=== PATIENT | female | born 1955 | race Caucasian/White ===

== ENCOUNTER 2020-03-22 06:58 | Outpatient (NON) | payer MEDICARE, MEDICAID, SELFPAY ==
[2020-03-22 23:36] LABS: SARS-CoV-2 RNA PCR Negative
== END 2020-03-22 06:59 ==
PROVIDERS: PCP Family Medicine; Visit Provider Family Medicine
DX: Z20.828 Contact with and (suspected) exposure to other viral communicable diseases (principal); R05 Cough; R06.02 Shortness of breath; R50.9 Fever, unspecified; R52 Pain, unspecified
CPT/HCPCS: 87635; C9803; U0003

== ENCOUNTER 2020-09-05 13:03 | Outpatient (CLI) | payer MEDICARE, MEDICAID, SELFPAY ==
--- NOTE | ~2020-09-05 | DEXA_ITS ---
Bone Density Report Name: Megan Truong Age: 65 Sex: Female Ethnicity: White Date of : 1955 Indication: osteopenia; height loss; prior fracture; Referring Provider: Roddy Fernandez Study: Bone densitometry was performed. Exam Date: September 05, 2020 Accession number: [id number] Bone Density: Region BMD T-score Z-score Classification AP Spine (L2, L3, L4) 0.866 -1.9 0.0 Osteopenia Femoral Neck (Left) 0.723 -1.1 0.5 Osteopenia Total Hip (Left) 0.569 -3.1 -1.7 Osteoporosis World Health Organization criteria for BMD impression classify patients as: Normal (T-score at or above -1.0), Osteopenia (T-score between -1.0 and -2.5), or Osteoporosis (T-score at or below -2.5). 10-year Fracture Risk: FRAX not reported because: Some T-score for Spine Total or Hip Total or Femoral Neck at or below -2.5 Prior hip or vertebral fracture Previous Exams: Region Exam Age BMD T-score BMD Change BMD Change Date g/cm2 vs Baseline vs Previous AP Spine(L2, L3, L4) 09/05/2020 65 0.866 -1.9 -0.137(-13.7%) -0.116(-11.8%) 06/04/2008 52 0.981 -0.9 -0.022(-2.2%) -0.022(-2.2%) 02/21/2006 50 1.003 -0.7 Total Hip(Left) 09/05/2020 65 0.569 -3.1 -0.221(-28.0%) -0.151(-21.0%) 06/04/2008 52 0.720 -1.8 -0.070(-8.9%)* -0.070(-8.9%)* 02/21/2006 50 0.790 -1.2 *Denotes significance at 95% confidence level, LSC for AP Spine = 0.022 g/cm2, LSC for Total Hip = 0.027 g/cm2 Clinical Information Provided by Patient: Have had a previous hip or vertebral fracture Has had a low trauma fracture Patient maximum height was 66 Menopause Age: 53 No regular weight bearing exercise Does not regularly consume dairy products Drinks caffeinated beverages Onset of menses at age 10 Number of children 2 Impression: The patient has established osteoporosis, based on the Left Total Hip T-score and the existence of a prior fracture. The patient has risk factors, including: previous fracture. No significant bone loss was observed. Discussion: HIGH RISK OF FRACTURE. BONE DENSITY IS UNDESIRABLY LOW AT ONE OR MORE SKELETAL SITES, CONSISTENT WITH POSTMENOPAUSAL OSTEOPOROSIS. This patient's lowest T-score, in a patient who has previously fractured, meets the World Health Organization's (WHO) criteria for severe osteoporosis. In untreated patients, the risk of osteoporotic fracture increases approximately two-fold for each 1.0 SD decrease in T-score. Low bone density is not the only risk factor for fracture; also consider factors such as patient's age, frailty or
== END 2020-09-05 13:04 | disposition home or self-care (01) ==
LOC: ANHIMG 13:05
PROVIDERS: PCP Family Medicine; Visit Provider Family Medicine
DX: M81.0 Age-related osteoporosis without current pathological fracture (principal); M85.852 Other specified disorders of bone density and structure, left thigh; S32.10XA Unspecified fracture of sacrum, initial encounter for closed fracture
CPT/HCPCS: 77080

== ENCOUNTER → 2020-12-21 10:18 | Outpatient (CLI) | payer MEDICARE, MEDICAID, SELFPAY ==
--- NOTE | ~2020-12-21 | XR_ITS ---
XR knee LT min 4V 12/21/2020 10:35 INDICATION: Left knee pain PROCEDURE: 5 views left knee COMPARISON: 06/01/2006 FINDINGS: Fracture, dislocation or subluxation is not identified. Osteopenia. No significant joint ef fusion. The soft tissues appear within normal limits. No foreign bodies are identified. IMPRESSION: 1: NO ACUTE BONE OR JOINT ABNORMALITY IDENTIFIED. Reviewed, dictated and finalized at location A.
== END ==
PROVIDERS: PCP Family Medicine; Visit Provider Physician Assistant Medical
DX: M25.562 Pain in left knee (principal)
CPT/HCPCS: 73564

== ENCOUNTER 2021-07-02 12:13 | Emergency (ER) | payer MEDICARE, MEDICAID, SELFPAY ==
--- NOTE | ~2021-07-02 | XR_ITS ---
XR hand LT 2V 07/02/2021 12:46 Indication: Left hand pain after fall Procedure: 2 views of the left hand Comparison: No prior studies for comparison. Findings: There is dislocation of the third finger at the PIP joint with dorsal dislocation. Osteopen ia. No acute fracture is identified. Impression: 1: Dorsal dislocation of the left third finger at the PIP joint. No definite underlying fracture. Reviewed, dictated and finalized at location A. SUPERVISOR Impression: 1: Dorsal dislocation of the left third finger at the PIP joint. No definite un derlying fracture.
--- NOTE | ~2021-07-02 | XR_ITS ---
XR finger 3rd LT min 2V 07/02/2021 14:00 Indication: Post reduction Procedure: 2 views left third finger Comparison: 07/02/2021 Findings: No significant interval change to alignment of dislocated left third finger at the PIP join t. There is persistent dorsal dislocation. Mild soft tissue swelling. Impression: 1: No significant change to alignment of dorsally dislocated third finger at the PIP joint. Reviewed, dictated and finalized at location A. SITTER Impression: 1: No significant change to alignment of dorsally dislocated third finger at th e PIP joint.
[2021-07-02 12:16] VITALS: BP 151/100; PULSE 124; RESP 18; TEMP 37.1; O2SAT 97
[2021-07-02] MEDS: MORPHINE SULFATE (*CRX) 4 MG/ML INJ IV PUSH (14:00)
[2021-07-02] MEDS: ONDANSETRON INJ 4 MG/2 ML VIAL IV PUSH (14:00)
[2021-07-02] MEDS: ceFAZolin SODIUM 1 GM VIAL IV PUSH (14:01)
--- NOTE | 2021-07-02 14:13 | ED.FALL ---
HPI - Fall General Chief Complaint: Fall Stated Complaint: L 3RD DIGIT INJURY Time Seen by Provider: 07/02/21 12:33 Source: patient Mode of arrival: wheelchair Limitations: no limitations History of Present Illness HPI Narrative: This is a 65 year old RHD female that presents to the ER for left hand injury sustained just prior to arrival. Reports she was transferring from her recliner into her wheelchair. She fell and caught herself with her left hand. She denies hitting her head or loss of consciousness. No other injuries. Reports pain and swelling to the left third finger with decreased range of motion. Denies numbness. Related Data Home Medications Medication Instructions Recorded Confirmed baclofen 10 mg PO TID PRN 06/12/19 12/20/20 citalopram 40 mg PO DAILY 06/12/19 12/20/20 morphine 60 mg PO Q8H 06/12/19 12/20/20 oxycodone 15 mg PO Q4H PRN 06/12/19 12/20/20 polyethylene glycol 3350 17 gram 17 g PO BID PRN each 10/30/19 12/20/20 oral powder packet Allergies Allergy/AdvReac Type Severity Reaction Status Date / Time clindamycin Allergy Mild HIVES Verified 07/02/21 12:26 ibuprofen AdvReac Mild Nausea and Verified 07/02/21 12:26 Vomiting Review of Systems Review of Systems: CONSTITUTIONAL: Denies fever MUSCULOSKELETAL: Reports joint pain, and myalgia. NEUROLOGIC: Denies numbness, or weakness. All systems reviewed & are unremarkable except as noted in HPI and below PMFSH Past Medical History Medical History (Updated 07/02/21 @ 15:14 by Pamela Clark PA-C) Arthritis Bronchitis Depression Emphysema lung Femur fracture, right GERD (gastroesophageal reflux disease) Hip fracture, right HTN (hypertension) Idiopathic peripheral autonomic neuropathy, unspecified Major depressive disorder, recurrent, unspecified Peripheral neuropathy Pneumonia Surgical History Surgical History History of hysterectomy Hx of cervical spine surgery fusion of C2-T2 S/P cubital tunnel release rt side Status post-operative repair of closed fracture of right hip Family History Family History Mother Diabetes mellitus Family history of cardiovascular disease Acute myocardial infarction Grandparent Family history of malignant neoplasm of breast Other Depression Social History Social History (Reviewed 12/20/20 @ 11:07 by Jaylin Bay [facility] [address]) Smoking packs per day: 1 Smoking cigarettes per day: 20.0 Years smoked: 35 Smoking pack-years: 35.00 Smoking status: Current every day smoker Alcohol intake: never Substance use: never Gender identity (if verbalized by the patient): Female Spiritual care concerns: No Agree to blood products: Yes Exam Narrative: GENERAL: Well-appearing, well-nourished, and in no acute distress. HEAD: Normocephalic, atraumatic. EYES: EOMI. EXTREMITIES: Edema with obvious deformity of the left third finger PIP joint. This is an open dislocation with 1.5cm laceration on the palmar surface of the joint. Normal sensation SKIN: Warm, dry, no rash. NEURO: No focal deficits. Alert and oriented x3. PSYCH: Normal mood and affect Course Consultations Consultation #1: Spoke with Dr. Hall with [facility] who accepts transfer Date: 07/02/21 Vital Signs Vital signs: Vital Signs Temperature 98.8 F 07/02/21 12:16 Pulse Rate 124 H 07/02/21 12:16 Respiratory Rate 18 07/02/21 12:16 Blood Pressure 151/100 H 07/02/21 12:16 Pulse Oximetry 97 07/02/21 12:16 Temperature 98.8 F 07/02/21 12:16 Pulse Rate 101 H 07/02/21 16:52 Respiratory Rate 18 07/02/21 16:52 Blood Pressure 165/102 H 07/02/21 16:52 Pulse Oximetry 98 07/02/21 16:52 Procedures Orthopedic Joint Reduction Joint #1: Orthopedic Joint Reduction Date: 07/02/21 Orthopedic Joint Reduction Time: 14:00 Side: left Joint Reduction Loc
--- NOTE | 2021-07-02 14:33 | PC.NURSE ---
when checking pt's vital signs, pt was 78% on room air. placed pt on 3L of O2 via nasal cannula and pt is now at 98%. pt states she wears 2L at home as needed.
[2021-07-02 14:34] VITALS: O2SAT 98
[2021-07-02 14:35] VITALS: BP 156/101; PULSE 95; RESP 14; O2SAT 98
[2021-07-02 16:52] VITALS: BP 165/102; PULSE 101; RESP 18; O2SAT 98
== END 2021-07-02 16:50 | disposition short-term general hospital (02) ==
PROVIDERS: Emergency Provider Emergency Medicine; PCP Family Medicine
DX: S63.283A Dislocation of proximal interphalangeal joint of left middle finger, initial encounter (principal); J43.9 Emphysema, unspecified; I10 Essential (primary) hypertension; M19.90 Unspecified osteoarthritis, unspecified site; K21.9 Gastro-esophageal reflux disease without esophagitis; G60.9 Hereditary and idiopathic neuropathy, unspecified; Z87.01 Personal history of pneumonia (recurrent); F32.9 Major depressive disorder, single episode, unspecified; Z98.1 Arthrodesis status; F17.210 Nicotine dependence, cigarettes, uncomplicated; W07.XXXA Fall from chair, initial encounter
CPT/HCPCS: 26770; 73120; 73140; 96374; 96375; 99285; J0690; J2270; J2405

== ENCOUNTER 2021-07-21 08:38 | Emergency (ER) | payer MEDICARE, MEDICAID, SELFPAY ==
--- NOTE | ~2021-07-21 | XR_ITS ---
EXAMINATION: XR foot LT min 3V DATE: 07/21/2021 09:13 INDICATION: Left foot injury and pain. TECHNIQUE: 4 views of left foot were obtained. COMPARISON: None. FINDINGS: Bone alignment is normal. No fracture. There is mild osteoarthritis of first metatarsophala ngeal joint and some of the interphalangeal joints. There is diffuse osteopenia. IMPRESSION: 1. Mild polyarticular osteoarthritis. Reviewed, dictated and finalized at location A. GEMENT MANAGER
--- NOTE | ~2021-07-21 | XR_ITS ---
EXAMINATION: XR ankle LT min 3V DATE: 07/21/2021 09:13 INDICATION: Left ankle injury. TECHNIQUE: 4 views of left ankle were obtained. COMPARISON: None. FINDINGS: Bone alignment is normal. No fracture. There is diffuse osteopenia. The ankle joint space i s normal. There is ankle soft tissue swelling. IMPRESSION: 1. No fracture. Reviewed, dictated and finalized at location A. LANE INSPECTOR IMPRESSION: 1. No fracture.
[2021-07-21 08:47] VITALS: BP 141/85; PULSE 88; RESP 18; TEMP 36.8; O2SAT 95
--- NOTE | 2021-07-21 08:59 | ED.LOWEXIN ---
HPI - Extremity Injury (Lower) General Chief Complaint: Extremity Injury, Lower Stated Complaint: left foot injury Time Seen by Provider: 07/21/21 08:50 History of Present Illness HPI Narrative: 65-year-old female presents the emergency room with complaints of left foot left ankle pain. Patient states that she was sitting in a chair and her foot got caught underneath and she tripped and fell twisting her foot and ankle. Patient has a stated history of neuropathy in both of her feet for which she takes morphine and oxycodone. Related Data Home Medications Medication Instructions Recorded Confirmed citalopram 40 mg PO DAILY 06/12/19 07/04/21 morphine 60 mg PO Q8H 06/12/19 07/04/21 oxycodone 15 mg PO Q4H PRN 06/12/19 07/04/21 polyethylene glycol 3350 17 gram 17 g PO BID PRN each 10/30/19 07/04/21 oral powder packet Allergies Allergy/AdvReac Type Severity Reaction Status Date / Time clindamycin Allergy Mild HIVES Verified 07/02/21 12:26 ibuprofen AdvReac Mild Nausea and Verified 07/02/21 12:26 Vomiting Review of Systems Review of Systems: CONSTITUTIONAL: Denies fever, chills, or sweats. EYES: Denies visual changes, redness, or discharge. ENT: Denies rhinorrhea, congestion, sore throat, or otalgia. CARDIOVASCULAR: Denies chest pain, palpitations, or edema. RESPIRATORY: Denies cough or dyspnea. GASTROINTESTINAL: Denies abdominal pain, nausea, vomiting, or diarrhea. GENITOURINARY: Denies dysuria or hematuria. SKIN: Denies rash or itching. MUSCULOSKELETAL: Reports left foot and ankle pain. NEUROLOGIC: Denies headache, numbness, dizziness, or weakness. PSYCHIATRIC: Denies anxiety or depression. [facility] Past Medical History Medical History (Updated 07/21/21 @ 09:23 by Giovanni Mendoza APRN) Arthritis Bronchitis Depression Emphysema lung Femur fracture, right GERD (gastroesophageal reflux disease) Hip fracture, right HTN (hypertension) Idiopathic peripheral autonomic neuropathy, unspecified Major depressive disorder, recurrent, unspecified Peripheral neuropathy Pneumonia Surgical History Surgical History History of hysterectomy Hx of cervical spine surgery fusion of C2-T2 S/P cubital tunnel release rt side Status post-operative repair of closed fracture of right hip Family History Family History Mother Diabetes mellitus Family history of cardiovascular disease Acute myocardial infarction Grandparent Family history of malignant neoplasm of breast Other Depression Social History Social History Smoking packs per day: 1 Smoking cigarettes per day: 20.0 Years smoked: 35 Smoking pack-years: 35.00 Smoking status: Current every day smoker Alcohol intake: never Substance use: never Gender identity (if verbalized by the patient): Female Spiritual care concerns: No Agree to blood products: Yes Exam Narrative: GENERAL: Well-appearing, well-nourished, and in no acute distress. HEAD: Normocephalic, atraumatic. EYES: PERRLA and EOMI. ENT: Nares clear, no rhinorrhea or epistaxis. Mucous membranes moist. Oropharynx without tonsillar hypertrophy exudate or other lesions. Bilateral TMs pearly [place]wood nonbulging NECK: Supple. No adenopathy or masses. No carotid bruits or JVD CHEST: Clear to auscultation. No respiratory distress. No wheezes rales or rhonchi HEART: Regular rate and rhythm. No murmur heard. Normal peripheral pulses. ABDOMEN: Soft, nontender, nondistended, normal active bowel sounds. EXTREMITIES: Left foot: Tenderness over the dorsal surface of the second third metatarsals, mild soft tissue swelling, no ecchymosis noted. Limited range of motion due to pain. Distal pulses weak and thready. SKIN: Warm, dry, no rash. NEURO: No focal deficits. Alert and oriented x3. PSYCH: Normal mood and affect. Course Cou
== END 2021-07-21 09:45 | disposition home or self-care (01) ==
PROVIDERS: Emergency Provider Nurse Practitioner Family; PCP Family Medicine
DX: S93.602A Unspecified sprain of left foot, initial encounter (principal); J43.9 Emphysema, unspecified; I10 Essential (primary) hypertension; K21.9 Gastro-esophageal reflux disease without esophagitis; G60.8 Other hereditary and idiopathic neuropathies; M19.072 Primary osteoarthritis, left ankle and foot; F33.9 Major depressive disorder, recurrent, unspecified; Z87.01 Personal history of pneumonia (recurrent); W01.0XXA Fall on same level from slipping, tripping and stumbling without subsequent striking against object, initial encounter; Z98.1 Arthrodesis status; F17.210 Nicotine dependence, cigarettes, uncomplicated
CPT/HCPCS: 73610; 73630; 99283

== ENCOUNTER 2023-04-30 09:56 | Emergency (ER) | payer MEDICARE, MEDICAID, SELFPAY ==
--- NOTE | ~2023-04-30 | CT_ITS ---
Clinical Indication: Shortness of breath, hemoptysis CT Scan of the Chest with Contrast: Technique: Contiguous sections were acquired throughout the chest after intravenous administration of 100 cc of Omnipaque 350. Dose reduction technique was used on this scan by utilizing automated expos ure control and iterative reconstruction technique. The dose-length product (DLP) was 199.70 mGy-cm. COMPARISON: 07/25/2019 Findings: There is no evidence of any significant mediastinal, hilar or axillary lymphadenopathy. There is no f illing defect in the pulmonary arterial tree to suggest pulmonary embolus. There is no evidence of ao rtic dissection or aneurysm. There is no evidence of pleural or pericardial effusion. There is mild biapical scarring. Moderate emphysema present. There is additional scarring or chronic interstitial change at the lingula and right middle lobe. There is extensive consolidation and inters titial pattern at the left lung base. There is opacification of segmental bronchi extending to the in feromedial left lower lobe, presumably with debris. Images through the upper abdomen reveal no abnormalities. Impression: No evidence of pulmonary embolus, aortic dissection, or aortic aneurysm. Probable left lower lobe pneumonia with patchy consolidation and extensive interstitial thickening. A ssociated opacification of segmental bronchi extending to the inferomedial left lower lobe, presumabl y with debris. More mild interstitial thickening in the right middle lobe and lingula. Correlate for additional pneu monia versus possibly chronic interstitial disease or acute on chronic small airways infection. Moderate emphysema with mild biapical scarring. Reviewed, dictated and finalized at [facility]. 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 Probable left lower lobe pneumonia with patchy consolidation and extensive inte rstitial thickening. Associated opacification of segmental bronchi extending to the inferomedial left lower lobe, presumably with debris. More mild interstitial thickening in the right middle lobe and lingula. Correla te for additional pneumonia versus possibly chronic interstitial disease or acu te on chronic small airways infection. Moderate emphysema with mild biapical scarring.
[2023-04-30 10:19] VITALS: BP 156/89; PULSE 105; RESP 17; TEMP 37.1; O2SAT 94
[2023-04-30 11:10] LABS: Influenza A QL RT-PCR Negative (Negative); Influenza B QL RT-PCR Negative (Negative); RSV RNA, RT-PCR Negative (Negative); SARS-CoV-2 RNA PCR Negative (Negative)
[2023-04-30 12:47] VITALS: BP 125/87; PULSE 91; RESP 17; O2SAT 95
--- NOTE | 2023-04-30 12:51 | ECG_ITS ---
Measurements Intervals [place] Rate: 97 P: 66 IA: 190 QRS: 61 QRSD: 92 T: 1 QT: 334 QTc: 426 Interpretive Statements SINUS RHYTHM POSSIBLE LEFT ATRIAL ENLARGEMENT [-0.1mV P WAVE IN V1/V2] NONSPECIFIC T-WAVE ABNORMALITY COMPARED TO ECG 08/24/2018 20:40:34 T-WAVE ABNORMALITY NOW PRESENT Electronically Signed On 04-30-2023 13:37:59 INFORMATICS ANALYST by Faby Waters M.D.
--- NOTE | 2023-04-30 12:51 | ED.URI ---
HPI - URI/Sore Throat General Chief Complaint: Upper Respiratory Infection <Beatriz Simmons PA-C - Last Filed: 04/30/23 13:01> Stated Complaint: HEMOPTYSIS <Beatriz Simmons PA-C - Last Filed: 04/30/23 13:01> Time Seen by Provider: 04/30/23 13:23 <FRANCISCO J Shukla Last Filed: 04/30/23 13:01> Source: patient <FRANCISCO J Shukla Last Filed: 04/30/23 13:01> Mode of arrival: ambulatory <FRANCISCO J Shukla Last Filed: 04/30/23 13:01> Limitations: no limitations <FRANCISCO J Shukla Last Filed: 04/30/23 13:01> History of Present Illness HPI Narrative: Patient is a 67 y/o female who presents to the ED with report of hemoptysis. Patient reports she has not felt well for the last 1 week. She complains of cough, congestion, body aches, weakness, fatigue. She also reports having chest pain/achiness, shortness breast, worse with exertion. Since last Saturday, she complains of hemoptysis. She reports having up to a tbsp of blood with coughing. It is at times mixed with sputum, at times otherwise just plain blood. Patient has never had anything like this before. Denies previous lung issues. No previous history of blood clots. Denies lower extremity pain or swelling. She does note that she was exposed to a family member with COVID-19 on . Denies fevers. <Beatriz Simmons PA-C - Last Filed: 04/30/23 13:01> Patient is a 67 y/o female who presents to the ED with report of hemoptysis. Patient reports she has not felt well for the last 1 week. She complains of cough, congestion, body aches, weakness, fatigue. She also reports having chest pain/achiness, shortness breast, worse with exertion. Since last Saturday, she complains of hemoptysis. She reports having up to a tbsp of blood with coughing. It is at times mixed with sputum, at times otherwise just plain blood. Patient has never had anything like this before. Denies previous lung issues. No previous history of blood clots. Denies lower extremity pain or swelling. She does note that she was exposed to a family member with COVID-19 on gi. Denies fevers. Does have a prior history of DVT secondary to surgery. Patient does not take blood thinners <Deepak Carnes MD - Last Filed: 05/01/23 07:03> Related Data Home Medications: Home Medications Medication Instructions Recorded Confirmed morphine 60 mg tablet,extended 60 mg PO Q8H 06/12/19 01/08/22 release oxycodone 15 mg tablet 15 mg PO Q4H PRN Pain 06/12/19 01/08/22 polyethylene glycol 3350 17 gram 17 g PO BID PRN 10/30/19 01/08/22 oral powder packet (Miralax) <Beatriz Simmons PA-C - Last Filed: 04/30/23 13:01> Allergies/Adverse Reactions: Allergies Allergy/AdvReac Type Severity Reaction Status Date / Time clindamycin Allergy Mild HIVES Verified 04/30/23 12:48 ibuprofen AdvReac Mild Nausea and Verified 04/30/23 12:48 Vomiting <Beatriz Simmons PA-C - Last Filed: 04/30/23 13:01> Review of Systems Review of Systems: CONSTITUTIONAL: Denies fever, chills, or sweats. ENT: See HPI. CARDIOVASCULAR: See HPI. RESPIRATORY: See HPI. GASTROINTESTINAL: Denies abdominal pain, nausea, vomiting, or diarrhea. GENITOURINARY: Denies dysuria or hematuria. <Beatriz Simmons PA-C - Last Filed: 04/30/23 13:01> All systems reviewed & are unremarkable except as noted in HPI and below <Beatriz Simmons PA-C - Last Filed: 04/30/23 13:01> [facility] Past Medical History Medical History: Medical History Arthritis Bronchitis Depression Emphysema lung Femur fracture, right GERD (gastroesophageal reflux disease) Hip fracture, right HTN (hypertension) Idiopathic peripheral autonomic neuropathy, unspecified Major depressive disorder, recurrent, unspecified Osteoporosis, unspecified Peripheral neuropathy Pneumonia
[2023-04-30 13:17] LABS: Basophils Absolute Auto 0.1 K/mm3 (0.0-0.1); Basophils Percent Auto 0.4 % (0.2-1.2); Eosinophils Percent Auto 0.1 % (0-4.4); Hematocrit 45.7 % (37.0-47.0); Hemoglobin 14.4 g/dL (12.0-15.0); Immature Granulocyte Absolute 0.04 K/mm3 (0.00-0.031); Immature Granulocyte Percent A 0.3 % (0-0.5); Lymphocytes Absolute Auto 1.35 K/mm3 (0.9-3.2); Lymphocytes Percent Auto 9.6 % (18.3-44.2); Mean Corpuscular HGB Conc 31.5 g/dl (32-36); Mean Corpuscular Hemoglobin 28.6 pg (26-34); Mean Corpuscular Volume 90.9 fl (80-100); Mean Platelet Volume 9.6 fl (7.4-10.4); Monocytes Percent Auto 7.1 % (2.6-8.5); Neutrophils Absolute Auto 11.6 K/mm3 (1.3-6.7); Neutrophils Percent Auto 82.5 % (45.5-73.1); Platelet Count Result 253 k/mm3 (150-375); Red Blood Count 5.03 M/mm3 (4.2-5.4); Red Cell Distribution Width 13.4 % (11.5-14.5)
[2023-04-30 13:28] LABS: Partial Thromboplastin Time 31.2 SECONDS (22.3-36.8)
[2023-04-30 13:37] LABS: Alanine Aminotransferase 11 U/L (6-35); Albumin Level 4.5 g/dL (3.5-5.1); Alkaline Phosphatase 103 U/L (38-126); Anion Gap 6 mmol/L (8-16); Aspartate Amino Transferase 20 U/L (14-36); Bilirubin,Total 1.1 mg/dL (0.2-1.3); Blood Urea Nitrogen 14 mg/dL (7-17); Calcium 9.9 mg/dL (8.4-10.2); Carbon Dioxide 32 mmol/L (22-30); Chloride 100 mmol/L (98-107); Estimated CRCL calculation 65 ml/min; Estimated Glomerular Filt Rate > 60; Glucose 113 mg/dL (65-110); Potassium 4.1 mmol/L (3.4-5.0); Sodium 138 mmol/L (137-145)
[2023-04-30 13:48] LABS: Troponin I < 0.012 ng/mL (0.000-0.034)
[2023-04-30 14:12] LABS: Appearance Urine Clear (Clear); Bacteria Urine None Seen /hpf; Bilirubin Urine 1+ (Negative); Blood Urine Negative (Negative); Color Urine Dark Yellow (Yellow); Glucose Urine UA Negative (Negative); Ketones Urine Trace mg/dL (Negative); Leukocyte Esterase Ur Trace LEU/UL (Negative); Nitrate Urine Negative (Negative); Non Pathogenic Casts 0-2; Protein Urine Negative (Negative); RBC Urine 0-2 /hpf (0-2); Specific Grav Ur 1.017 (1.001-1.035); Squamous Epithelial Cell Urine None seen /hpf (Few); WBC Urine 0-5 /hpf; pH Urine 5.5 (5.0-9.0)
[2023-04-30 14:15] LABS: Add Urine Microscopic? YES
[2023-04-30] MEDS: AZITHROMYCIN 250 MG TABLET 500 MG PO (14:57)
[2023-04-30] MEDS: AMOXICILLIN/CLAVULANATE K 875-125 MG TAB 1 TABLET PO (14:57)
[2023-04-30 15:01] VITALS: O2SAT 99
== END 2023-04-30 15:06 | disposition home or self-care (01) ==
PROVIDERS: Emergency Medicine; Physician Assistant; Emergency Provider Emergency Medicine; PCP Family Medicine
DX: J18.9 Pneumonia, unspecified organism (principal); R04.2 Hemoptysis; Z20.822 Contact with and (suspected) exposure to COVID-19; F17.210 Nicotine dependence, cigarettes, uncomplicated; M19.90 Unspecified osteoarthritis, unspecified site; F32.A Depression, unspecified; K21.9 Gastro-esophageal reflux disease without esophagitis; I10 Essential (primary) hypertension
CPT/HCPCS: 36415; 71275; 80053; 81001; 84484; 85025; 85610; 85730; 87637; 93005; 99284; A9270; Q9967

== ENCOUNTER 2023-07-17 08:10 | Outpatient (CLI) | payer MEDICARE, MEDICAID, SELFPAY ==
--- NOTE | ~2023-07-17 | CT_ITS ---
CT Scan of the Chest without Contrast: Clinical Indication: Pneumonia Technique: Contiguous sections were acquired throughout the chest without intravenous contrast. Dose reduction technique was used on this scan by utilizing automated exposure control and iterative recon struction technique. The dose-length product (DLP) was 122.44 mGy-cm. COMPARISON: 04/30/2023 Findings: There is no evidence of any significant mediastinal, hilar or axillary lymphadenopathy. The mediastin al soft tissues appear normal. There is no evidence of pleural or pericardial effusion. Stable biapical scarring noted. There is mild emphysema. Stable scarring at the inferior left upper l obe and right middle lobe. Images through the upper abdomen reveal no abnormalities. Impression: No acute abnormality seen. Stable emphysema and areas of pulmonary scarring, as above. Previously noted left lower lobe pneumonia is resolved. Reviewed, dictated and finalized at [facility]. BICS INSTRUCTOR Impression: No acute abnormality seen. Stable emphysema and areas of pulmonary scarring, as above. Previously noted left lower lobe pneumonia is resolved.
--- NOTE | 2023-07-17 13:54 | WPDPFTINT ---
PFT Procedure Performed PFT Procedure Performed Spirometry with Pre/Post Bronchodilator Plethysmography (Lung Vol) Diffusing Cap (DLCO) Flow Vol Loop PFT Interpretation Lung volumes were measured with the body plethysmography method. Lung volumes are unremarkable. Spirometry showed diminished expiratory flow rates and a diminished FEV1 to FVC ratio 48%, consistent with obstructive airway disease. Following administration of a bronchodilator there was significant increase in the FEV1. Lung diffusion capacity is moderately reduced at 46% predicted. The flow volume loop is consistent with obstructive airway disease. Impression: Mild obstructive airway disease with significant response to bronchodilators on this testing. Moderately reduced lung diffusion capacity.
== END 2023-07-17 08:11 | disposition home or self-care (01) ==
LOC: ANHPFT 08:10
PROVIDERS: PCP Family Medicine; Visit Provider Internal Medicine Pulmonary Disease
DX: J18.9 Pneumonia, unspecified organism (principal); J43.9 Emphysema, unspecified
CPT/HCPCS: 71250; 94060; 94726; 94729

== ENCOUNTER 2024-08-03 07:23 | Outpatient (CLI) | payer MEDICARE, MEDICAID, SELFPAY ==
--- NOTE | ~2024-08-03 | CT_ITS ---
EXAMINATION:CT lung screening DATE: 08/03/2024 07:47 INDICATION: Personal history of nicotine dependence. TECHNIQUE: Computed tomography (CT) of the chest was performed without intravenous contrast. Automate d exposure control and iterative reconstruction technique were employed. The dose-length product (DLP ) was 59.84 mGy-cm. COMPARISON: Chest CT 07/17/2023 FINDINGS: There is moderate emphysema. There is stable scarring at the lung apices. There is stable s carring and anterior segment right upper lobe. There is stable scarring in anterior segment left uppe r lobe. There is a 3 mm nodule in lingula. There is a 3 mm nodule at left major fissure. No pleural e ffusion. The heart size is normal. There are coronary artery calcifications. No pericardial effusion. There are changes of anterior fusion procedure in cervical spine. There are changes of posterior fus ion procedure from the cervical spine to T2. There is a chronic compression fracture of T3. There are chronic burst fractures of T12 and L1 with changes of vertebroplasty. IMPRESSION: 1. Lung-RADS category 2: Benign appearance or behavior. Continue annual screening with noncontrast lo w-dose chest CT in 12 months. Reviewed, dictated and finalized at location B. IMPRESSION: 1. Lung-RADS category 2: Benign appearance or behavior. Continue annual screeni ng with noncontrast low-dose chest CT in 12 months.
--- NOTE | ~2024-08-03 | CT_ITS ---
CT brain wo con Ordering provider: Jolanta Gomez, FRANCISCO J History: 68 years Female with . HEADACHE . Comparison: None. Technique: CT of the head without contrast. Radiation reduction technique utilized.The dose-length product was 605.33 mGy-cm. FINDINGS: BRAIN PARENCHYMA AND CSF SPACES: Mild leukoaraiosis and diffuse cortical atrophy. Mild atheromatous d isease. No midline shift, mass effect or hemorrhage. The brain parenchyma and CSF spaces are otherwi se normal. VISUALIZED PARANASAL SINUSES: Well aerated. MASTOIDS: Well aerated. BONES: The bones appear intact. SOFT TISSUES: Visualized nasopharynx is normal. Superficial soft tissues are normal. IMPRESSION: No acute intracranial findings. Reviewed, dictated and finalized at location A.
--- OUTSIDE RECORDS SUMMARY | 2024-08-03 07:30 | XMS_ITS | Referral Summary ---
Author Organization [facility] Address [address] [place] [address] Care Team Providers Care Nuclear Plant Equipment Operator Name Role Phone Rosalia Milian MD Primary Care Provider + Encounters Date Type Department Care Team Description 07/30/2024 10:08 AM LIGHT BULB TESTER - 07/30/2024 11:59 PM LIGHT BULB TESTER Hospital Encounter [facility] [address] [place] [address] Discharge Disposition: Discharge to home or self care 07/30/2024 9:30 AM LIGHT BULB TESTER - 07/30/2024 11:59 PM LIGHT BULB TESTER Hospital Encounter [facility] [address] [place] [address] [facility] [address] [place] [address] Wally Rodgers MD Postlaminectomy syndrome of cervical region (Primary Dx); Primary osteoarthritis of left hip; Chronic use of opiate drug for therapeutic purpose Discharge Disposition: Discharge to home or self care 07/15/2024 Telephone [facility] [address] [place] [address] [facility] [address] [place] [address] Wally Rodgers MD 05/13/2024 Documentation [facility] [address] [facility] [address] [place] [id number] Imtiaz Pop LCSW Social Work Services 05/08/2024 8:55 AM LIGHT BULB TESTER - 05/08/2024 11:59 PM LIGHT BULB TESTER Hospital Encounter [facility] [address] [facility] [address] [place] [address] Analilia Trinidad NP Lack of access to adequate food (Primary Dx); Cervical post-laminectomy syndrome; Idiopathic peripheral neuropathy; Primary osteoarthritis of left hip Discharge Disposition: Discharge to home or self care from Last 3 Months Allergies Active Allergy Reactions Criticality Noted Date Comments Clindamycin Hives,Other (See comments) Medium 08/03/19 20 Rash, peeling skin Medications multivitamin tabletIndications:V itamin Deficiency Prevention daily. Active lisinopril-hydroCHL OROthiazide (ZESTORETIC) 20-25 mg per tablet Take 1 tablet by mouth daily 12/29/19 20 Active naloxone (NARCAN) 4 mg/actuation spray,non-aerosol Administer 1 spray into affected nostril(s) as needed for opioid reversal or respiratory depression Call 911. Administer a single spray in one nostril. Repeat every 3 minutes as needed if no or minimal response. 1 each 06/20/19 21 Active albuterol HFA (PROVENTIL HFA,VENTOLIN HFA,PROAIR HFA) 90 mcg/actuation inhaler INHALE 2 PUFFS BY MOUTH EVERY 4 HOURS NEEDED FOR SHORTNESS OF BREATH OR WHEEZING 02/06/20 22 Active pen needle, diabetic 32 gauge x 5/32 needle To inject forteo daily 50 each 6 02/29/20 22 Active ergocalciferol (VITAMIN D) 50,000 unit capsule Take 1 capsule by mouth once a week 12 capsule 07/24/19 24 Active valACYclovir (VALTREX) 1 gram tablet TAKE 2 TABLETS BY MOUTH EVERY 12 HOURS FOR 1 DAY NEEDED FOR COLD SORE FLARE UP 04/22/[address] (CYMBALTA) 60 mg capsuleIndications: Anxiety with Depression,Chronic Musculoskeletal Pain,Neuropathic Pain Take 1 capsule (60 mg total) by mouth daily 90 capsule 3 05/08/20 24 Active oxyCODONE (ROXICODONE) 15 mg immediate release tabletIndications:s evere chronic pain requiring long-term opioid treatment Take 0.5-1 tablets (7.5-15 mg total) by mouth every 4 (four) hours as needed for pain (MAXIMUM: 4 tabs/day) 120 tablet 07/21/19 25 Active amoxicillin-clavula lila (AUGMENTIN) 875-125 mg per tablet TAKE 1 TABLET BY MOUTH EVERY 12 HOURS WITH MEALS 06/30/19 25 Active doxycycline hyclate 100 mg capsule TAKE 1 CAPSULE BY MOUTH TWICE DAILY WITH MEALS 05/29/19 25 Active lisinopriL (PRINIVIL,ZESTRIL) 20 mg tablet Take 1 tablet every day by oral route. Active mupirocin (BACTROBAN) 2 % ointment APPLY A SMALL AMOUNT TO THE AFFECTED AREA OF FACE THREE TIMES DAILY 06/30/19 25 Active sulfamethoxazole-tr imethoprim (BACTRIM DS) 800-160 mg per tablet TAKE 1 TABLET BY MOUTH EVERY 12 HOURS WITH MEALS 06/30/19 25 Active morphine ER (MS CONTIN) 30 mg 12 hr tabletIndications:s evere chronic pain requiring long-term opioid treatment Take 1-2 tablets (30-60 mg total) by mouth 2 (two) times a day - maximum 4 tablets per day 120 tablet 08/06/19 25 Active oxyCODONE (ROXICODONE) 15 mg immediate release tabletIndications:s evere chronic pain requiring long-term opioid treatment Take 0.5-1 tablets (7.5-15 mg total) by mouth every 4 (four) hours as needed for pain (MAXIMUM: 4 tabs/day) 120 tablet 06/21/19 25 025 Discontin ued(Reord er) morphine ER (MS CONTIN) 30 mg 12 hr tabletIndications:s evere chronic pain requiring long-term opioid treatment Take 1-2 tablets (30-60 mg total) by mouth 2 (two) times a day - maximum 4 tablets per day 120 tablet 07/06/19 25 025 Discontin ued(Reord er) Active Problems Problem Noted Date Diagnosed Date Benign essential hypertension 02/26/2024 Vitamin D deficiency 02/26/2024 Depressive disorder 02/26/2024 Osteoarthritis of hip 02/26/2024 Diagnosis unknown 07/02/2021 Shoulder pain 04/04/2021 Compression fracture of T12 vertebra 07/04/2019 Compression fracture of L1 lumbar vertebra 07/04 H/O fracture of femur 08/24/2018 Overview (01/08/2019): Right - [facility] Osteoarthritis of acromioclavicular joint 2015 Rotator cuff syndrome 04/10/2016 Primary osteoarthritis of left hip 03/11/2016 Chronic use of opiate drug for therapeutic purpo se 03/05/2016 Overview (05/08/2024): Chronic Opioid Therapy - 05/08/24 Prior Analgesics: - morphine ER 60 mg TID + oxycodone 15-30 mg p.r.n. (MME 180 + 225 = 405 mg/day) 07/05/22 reset refill date left rx in [place] 07/26/22 - Out of med early; she is certain that meds stored securely and no one else has access; she may have taken extra doses - reset refill dates 01/23/24 medications lost in the mail during travel to [place] - reset refill dates Current analgesics decreased 11/05/23 - MSER 15 MG TABS x 15-30 mg tid = 90 mg/day - Oxycodone 7.5-15 mg q.i.d. p.r.n. = 60 mg/day Oral morphine equil: 90 + 90 = 180 mg MME Benzo:no Other: no Storage: it is kept in a locked box-[employer] combo lockdo not hesitate Plan: ,OKAY for 3 month follow up - Diagnosis or treatment significantly limited by social determinants of health, specifically including: Limited financial resources, severe functional impairment, limited access to transportation limited access to care - to implement/monitor progress with opioid dose reduction prior to orthopedic surgical intervention OK FOR 30 DAY REFILL DUE TO TRANSPORTATION DIFFICULTIES ,OKAY for 3 month follow up - Diagnosis or treatment significantly limited by social determinants of health, specifically including: Limited financial resources, severe functional impairment, limited access to transportation limited access to care Her daughter is handling all opioids 11/05/23 She is asking that we stop reducing her opioids further - she doesn't know when she is having surgery or if her bone density has recovered to the point she could have surgery - since last reduction she has had a significant loss of quality and feels she is suffering - in pain . Continue current opioid dosing for now Urine drug screen [facility] 03/05/16 - consistent with prescribed morphine, oxycodone Urine drug screen [facility] 06/26/16 - consistent with prescribed morphine, oxycodone Urine drug screen [facility] 04/26/2017-consistent w/ prescribed morphine, oxycodone Urine drug screen [facility] 04/24/18 - consistent with prescribed morphine , oxycodone 07/15/18 - loss/ theft pain medication while in [place] - reset refill dates Urine drug screen [facility] 03/12/19 - consistent with prescribed morphine , oxycodone Urine drug screen [facility] 11/25/19 - consistent with prescribed analgesics Urine drug screen [facility] 04/16/21 - consistent with prescribed analgesics Urine drug screen [facility] 09/24/22 - consistent with prescribed morphine, oxycodone Urine drug screen [facility] 08/08/23 - consistent with prescribed morphine, oxycodone Idiopathic peripheral neuropathy 03/13/2014 Arthralgia of multiple joints 12/20/2013 Cervical post-laminectomy syndrome 09/30/2012 Chronic pain 09/30/2012 Anaclitic depression 09/30/2012 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 09/30/2012 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 09/30 Cervical radiculopathy 10/31/2009 Lumbago 02/28/2009 Osteoporosis 02/28/2009 Encounter for preventive health examination 09/24 Pain of both hip joints 07/29/2008 Immunizations Immunization Administration Dates Next Due Influenza, Unspecified 05/11/2021 Moderna SARS-CoV-2 Monovalent Vaccination (12+ Y RS) 07/27/2020 Social History Tobacco Use Types Packs/Day Years Used Date Smoking Tobacco: Former Cigarettes 1 40 1 982 - 2021 Passive Smoke Exposure: Past Smokeless Tobacco: Never Tobacco Cessation:Counseling Given: Not Answered Alcohol Use Standard Drinks/Week Comments Never 0 (1 standard drink = 0.6 oz pur e alcohol) AUDIT-C Answer Date Recorded Q1: How often do you have a drink containing alc ohol? Never 07/30/2024 Average Number of Drinks Not on file 025 Frequency of Binge Drinking Not on file 10/2024 Comments No Sex and Gender Information Value Date Recorded Sex Assigned at Not on file Legal Sex Female 7:47 PM LIGHT BULB TESTER Gender Identity Not on file Sexual Orientation Not on file Last Filed Vital Signs Vital Sign Reading Time Taken Comments Blood Pressure 149/89 07/30/2024 9:41 AM LIGHT BULB TESTER Pulse 88 07/30/2024 9:41 AM LIGHT BULB TESTER Temperature 36.4 C (97.5 F) 07/30/2024 9:41 AM LIGHT BULB TESTER Respiratory Rate 18 07/30/2024 9:41 AM LIGHT BULB TESTER Oxygen Saturation 90% 07/30/2024 9:41 AM LIGHT BULB TESTER Inhaled Oxygen Concentration - - Weight 59 kg (130 lb) 07/30/2024 9:41 AM LIGHT BULB TESTER Height 160 cm (5' 3 ) 07/30/2024 9:41 AM LIGHT BULB TESTER Body Mass Index 23.03 07/30/2024 9:41 AM LIGHT BULB TESTER Plan of Treatment Not on file Goals Goal Patient Goal Type Associated Problems Recent Progress Patient-Stated? Author CCM Chronic Pain Care Plan Chronic Care Management No change(07/30 9:42 AM LIGHT BULB TESTER) No Keri krause, Eliza Castrejon RN Note: Problem: Chronic Pain Goals: 1. Minimize further functional decline 2. Maximize quality of life 3. Control pain Strategies: - Activity/exercise program recommendation - Conservative stepwise pain medicine strategy with multi-disciplinary approach - Recommend healthy lifestyle strategies and compensatory methods as needed Medical Devices Implanted Type Area Neurology Epilepsy Physician Device Identifier Shelf Expiration Date Model / Serial / Lot Screws And Cage N/A: Neck Screws And Rods Right: Femur [employer] [id number] Vertaplex Hv Autoplex Without Needle Delivery System Kit Bone - [id number] Implanted:Qty: 1 on 07/03/2019 by Alvarez Cui MD at [facility] [employer] [id number] / / Procedures Procedure Name Priority Date/Time Associated Diagnosis Comments TARGET OPIOID SCREEN BY OPERATIONS PROJECT MANAGER Routine 07/30/2024 10:08 AM LIGHT BULB TESTER DRUGS OF ABUSE SCREEN, URINE WITH REFLEX CONFIRMATION Routine 07/30/2024 10:08 AM LIGHT BULB TESTER DEXA AXIAL SKELETON BONE DENSITY 1 OR MORE SITES Schedule Routine, Read Routine (OP Routine) 10/22/2023 11:24 AM CDT Osteoporosis, unspecified osteoporosis type, unspecified pathological fracture presence from Last 3 Months or Most Recently Relevant to Health Maintenance Results * Targeted Opioid Screen, Ur (07/30/2024 10:08 AM LIGHT BULB TESTER) [facility] Signature Pain mgt 6-Acetylmorphine, Ur Not Detected CutOff 10 ng/mL Pain mgt Buprenorphine, Ur Not Detected CutOff 5 ng/mL [facility] Pain mgt Buprenorphine metabolite (Norbuprenorphine), Ur Not Detected CutOff 5 ng/mL [facility] Pain mgt Codeine, Ur Not Detected CutOff 25 ng/mL [facility] Pain mgt Hydrocodone, Ur Not Detected CutOff 25 ng/mL [facility] Pain mgt Hydromorphone, Ur Not Detected CutOff 25 ng/mL [facility] Pain mgt Methadone, Ur Not Detected CutOff 25 ng/mL [facility] Pain mgt Methadone Metabolite (EDDP), Ur Not Detected CutOff 25 ng/mL [facility] Pain mgt Morphine, Ur Detected CutOff 25 ng/mL [facility] Pain mgt Oxycodone, Ur Detected CutOff 25 ng/mL [facility] Pain mgt Oxymorphone, Ur Detected CutOff 25 ng/mL [facility] Pain mgt Tapentadol, Ur Not Detected CutOff 25 ng/mL [facility] Pain mgt Tramadol, Ur Not Detected CutOff 25 ng/mL [facility] Pain mgt Tramadol metabolite (O-desmethyltramado l), Ur Not Detected CutOff 25 ng/mL [facility] Comment: Interpretive Data This test only detects free, unconjugated drugs. The absence of expected drug(s) and/or metabolite(s) may indicate non-compliance, inappropriate timing of specimen collection relative to the time of dosing, variability in absorption, diluted or adulterated urine, or other testing limitations. Questions concerning interpretation should be directed to the laboratory. The results of this test are to be used only for medical purposes and are not suitable for forensic use. This test was developed and its performance characteristics determined by [facility]. It has not been cleared or approved by the U.S. Food and Drug Administration. Current interpretive data was last revised 18. Pain mgt Naloxone, ur Not Detected cutoff 20 ng/ml [facility] Urine 07/30/2024 10:0 8 AM LIGHT BULB TESTER 07/30/2024 4:49 PM LIGHT BULB TESTER us Wally Rodgers MD LAB URINE ORDERABLES Final Re sult [facility] Department [place] [address] * (ABNORMAL) Drugs of Abuse Screen, Urine with Reflex Confirmation (07/30/2024 10:08 AM LIGHT BULB TESTER) Amphetamine, ur Not Detected CutOff 500ng/mL Comment: Interpretive Data - Amphetamines: Samples containing greater than 500 ng/mL d-methamphetamine or other cross-reacting amphetamine compounds are reported as positive. Amphetamine immunoassays are subject to significant false positive rates due to cross-reactivity of non-amphetamine drugs. Confirmatory testing required for definitive results. Current Interpretive Data was last reviewed 2022. Barbiturates, ur Not Detected CutOff 200ng/mL [facility] Comment: Interpretive Data - Barbiturates: Samples containing greater than 200 ng/mL secobarbital or other cross-reacting barbiturate compounds are reported as positive. False positive and false negative results are possible. Confirmatory testing required for definitive results. Current Interpretive Data was last reviewed 2022. Benzodiazepines, ur Not Detected CutOff 100ng/mL [facility] Comment: Interpretive Data - Benzodiazepines: Samples containing greater than 100 ng/mL nordiazepam or other cross-reacting compounds are reported as positive. False positive and false negative results are possible. Confirmatory testing required for definitive results. Current Interpretive Data was last reviewed 2022. Cannabinoids, ur Not Detected CutOff 50 ng/mL [facility] Comment: Interpretive Data - Cannabinoids: Samples containing greater than 50 ng/mL delta-9 THC -COOH or other cross- reacting compounds are reported as positive. False positive and false negative results are possible. Confirmatory testing required for definitive results. Current Interpretive Data was last reviewed 2022. Cocaine, ur Not Detected CutOff 150ng/mL [facility] Comment: Interpretive Data - Cocaine: Samples containing greater than 150 ng/mL benzoylecgonine or other cross- reacting compounds are reported as positive. False positive and false negative results are possible. Confirmatory testing required for definitive results. Current Interpretive Data was last reviewed 2022. Fentanyl, Ur Not Detected CutOff 5 ng/mL [facility] Comment: Interpretive Data - Fentanyl: Samples containing greater than 5 ng/mL norfentanyl, fentanyl, or other cross-reacting fentanyl compounds are reported as positive. False positive and false negative results are possible. Confirmatory testing required for definitive results. Current Interpretive Data was last reviewed 2023. Methadone, ur Not Detected CutOff 300ng/mL [facility] Comment: Interpretive Data - Methadone: Samples containing greater than 300 ng/mL d,l-methadone or other cross-reacting compounds are reported as positive. False positive and false negative results are possible. Confirmatory testing required for definitive results. Current Interpretive Data was last reviewed 2022. Opiates, ur Screen Positive, presumptive (A) CutOff 300ng/mL [facility] Comment: Interpretive Data - Opiates: Samples containing greater than 300 ng/mL morphine or other cross-reacting compounds are reported as positive. False positive and false negative results are possible. Confirmatory testing required for definitive results. Current Interpretive Data was last reviewed 2022. Oxycodone, ur Screen Positive, presumptive (A) CutOff 100ng/mL [facility] Comment: Interpretive Data - Oxycodone: Samples containing greater than 100 ng/mL oxycodone or other cross-reacting compounds are reported as positive. False positive and false negative results are possible. Confirmatory testing required for definitive results. Current Interpretive Data was last reviewed 2022. Phencyclidine, ur Not Detected CutOff 25 ng/mL [facility] Comment: Interpretive Data - Phencyclidine: Samples containing greater than 25 ng/mL phencyclidine or other cross-reacting compounds are reported as positive. False positive and false negative results are possible. Confirmatory testing required for definitive results. Current Interpretive Data was last reviewed 2022. Urine Creatinine 56 mg/dL [facility] Comment: Interpretive Data Urine Creatinine: < 10 mg/dL is extremely dilute = or > 10 but < 20 mg/dL is dilute = or > 20 mg/dL is normal Current Interpretive Data was last revised on 2017. Urine 07/30/2024 10:0 8 AM LIGHT BULB TESTER 07/30/2024 4:49 PM LIGHT BULB TESTER Narrative [facility] - 07/30/2024 5:27 PM LIGHT BULB TESTER Drug of Abuse screening is performed by immunoassay for medical purposes only. This is not to be used for Pain Management purposes. If Detected, confirmation testing will be performed for Amphetamines, Cocaine, Fentanyl, Methadone, Opiates, Oxycodone or Phencyclidine. Wally Rodgers MD LAB URINE ORDERABLES Final Re sult [facility] [place] [address] * Dexa Axial Skeleton Bone Density 1 or 2 Site (10/22/2023 11:24 AM CDT) Anatomical Region Laterality Modality Body N/A Radiographic Kaitlin ging Narrative 10/22/2023 9:56 PM CDT Patient Name: Megan Truong Date of : 1955 Date of scan: 10/22/2023 Bone mineral density was performed on a [employer] Densitometer. Based on machine cross-calibration and precision studies the least significant changes of this densitometer is 0.024 g/cm2 at the spine, 0.020 g/cm2 at the total proximal femur, and 0.014g/cm2 at the forearm. HISTORY: This is a 68 y.o. postmenopausal female with a history of asthma, low bone mass, and vitamin D deficiency. She reports that she quit smoking about 2 years ago. Her smoking use included cigarettes. She started smoking about 42 years ago. She has a 40 pack-year smoking history. She has been exposed to tobacco smoke. She has never used smokeless tobacco. Currently on treatment with vitamin D, teriparatide (Forteo), and diuretics and current complaint of back pain and neck pain. INDICATIONS: Menopause status, treatment monitoring, history of prior vertebral fracture, vitamin D deficiency, and history of low bone mass. FINDINGS: BONE MINERAL DENSITY OF THE LUMBAR SPINE Bone Mineral Density (BMD) of the lumbar spine was measured from L2-L4 and the average density was calculated to be 0.959 gm/cm2. This corresponds to a T-score (standard deviations from the mean of young adults) of -1.1. When compared to the previous study of 01/22/2022 there has been a 0.021 gm/cm (2.3%) increase in bone density that is considered significant. BONE MINERAL DENSITY OF THE FOREARM Bone Mineral density (BMD) of the left proximal 1/3 of the radius measures 0.556 gm/cm2. This corresponds to a T-score (standard deviations from the mean of young adults) of -2.3. When compared to the previous study of 01/22/2022 there has been a -0.556 gm/cm (-2.3%) decrease in bone density that is considered significant. A forearm bone density study was performed instead of a proximal femur study because of patient is unable to straighten legs. SUMMARY: Bone mineral density shows evidence of low bone mass at the lumbar spine and forearm and moderately increased fracture risk (Osteopenia). There is a significant increase noted in the spine and a significant decrease noted in the forearm since the previous exam. L1 excluded from bone mineral density analysis of the lumbar spine because of the presence of vertebroplasty. ADDITIONAL COMMENTS: Postmenopausal Women and Men Over 50: Diagnostic criteria: Osteoporosis: BMD at or below -2.5 T-score; Osteopenia (low bone mass): BMD between -1.0 and -2.5 T-score. If the patient has a history of a fragility fracture, a fracture that occurred with trauma equivalent to a fall from a standing position or less, then the diagnosis is osteoporosis regardless of bone density. The history and data sections of the bone mineral density scan were prepared by Linnette Julian) JES who is accredited by the International Society of Clinical Densitometry. The overall patient assessment and scan interpretation were performed by Tatyana Arreola MD who is certified by the International Society of Clinical Densitometry. [id number] Soraya Andres DO [facility] [facility] Rashmi l Result from Last 3 Months or Most Recently Relevant to Health Maintenance Insurance MEDICARE [facility] MEDICARE [facility] MEDICARE Care Teams Nuclear Plant Equipment Operator Relationship Specialty Start Date End Date Rosalia Milian MD PCP - General Family Medicine 12/25/21
--- OUTSIDE RECORDS SUMMARY | 2024-08-03 07:30 | XMS_ITS | Encounter Summary ---
Author Organization [facility] Healthcare Address [address] [place] [address] Care Team Providers Care Assisted Living Manager Name Role Phone Angel Fernandez MD Primary Care Provider [phone] Rosalia Milian MD Primary Care Provider + Encounter Details Date Type Department Care Team (Late st Contact Info) Description 05/18/2020 Telephone [facility] [place] [facility] [address] [facility] [address] [place] [address] Wally Rodgers MD [address] [facility] [address] [facility] [phone] [place], [place] [id number] Social History Tobacco Use Types Packs/Day Years Used Date Smoking Tobacco: Former Cigarettes Smokeless Tobacco: Never Alcohol Use Standard Drinks/Week Comments Never 0 (1 standard drink = 0.6 oz pur e alcohol) AUDIT-C Answer Date Recorded Frequency of Alcohol Consumption Never 03/12/2019 Average Number of Drinks Not on file 019 Frequency of Binge Drinking Not on file 02/24 Comments No Sex and Gender Information Value Date Recorded Sex Assigned at Not on file Legal Sex Female 7:47 PM LIFE ENRICHMENT DIRECTOR Gender Identity Not on file Sexual Orientation Not on file documented as of this encounter Plan of Treatment Not on file documented as of this encounter Goals Goal Patient Goal Type Associated Problems Recent Progress Patient-Stated? Author CCM Chronic Pain Care Plan Chronic Care Management No change(07/30 9:42 AM LIFE ENRICHMENT DIRECTOR) No Keri krause Eliza Castrejon, SHOBHA Note: Problem: Chronic Pain Goals: 1. Minimize further functional decline 2. Maximize quality of life 3. Control pain Strategies: - Activity/exercise program recommendation - Conservative stepwise pain medicine strategy with multi-disciplinary approach - Recommend healthy lifestyle strategies and compensatory methods as needed documented as of this encounter Visit Diagnoses Not on filedocumented in this encounter Care Teams Assisted Living Manager Relationship Specialty Start Date End Date Angel Fernandez MD [address] [place] [address] PCP - General 07/13/16 12/24/21 Rosalia Milian MD [address] [place] [address] PCP - General Family Medicine 12/25/21 documented as of this encounter
--- OUTSIDE RECORDS SUMMARY | 2024-08-03 07:30 | XMS_ITS | Clinical Summary ---
Author Organization [facility] Address [address] [place] [address] Care Team Providers Care Evaporator Supervisor Name Role Phone Rosalia Milian MD Primary Care Provider + Allergies Active Allergy Reactions Criticality Noted Date [...] Active pen needle, diabetic 32 gauge x 32 needle To inject forteo daily 50 each [...] of femur 08/24/2018 Overview (01/08/2019): Right - [facility] Osteoarthritis of acromioclavicular joint 2015 Rotator cuff syndrome 04/10/2016 Primary osteoarthritis of left hip 03/11/2016 Chronic use of opiate drug for therapeutic purpo se 03/05/2016 Overview (05/08/2024): Chronic Opioid Therapy - 05/08/24 Prior Analgesics: - morphine ER 60 mg TID + oxycodone 15-30 mg p.r.n. (MME 180 + 225 = 405 mg/day) 07/05/22 reset refill date left rx in [place] 07/26/22 - Out of med early; she is certain that meds stored securely and no one else has access; she may have taken extra doses - reset refill dates 01/23/24 medications lost in the mail during travel to [place] - reset refill dates Current analgesics decreased 11/05/23 - MSER 15 MG TABS x 15-30 mg tid = 90 mg/day - Oxycodone 7.5-15 mg q.i.d. p.r.n. = 60 mg/day Oral morphine equil: 90 + 90 = 180 mg MME Benzo:no Other: no Storage: it is kept in a locked box-industrial combo lockdo not hesitate Plan: ,OKAY for [...] opioid dosing for now Urine drug screen [facility] 03/05/16 - consistent with prescribed morphine, oxycodone Urine drug screen [facility] 06/26/16 - consistent with prescribed morphine, oxycodone Urine drug screen [facility] 04/26/2017-consistent w/ prescribed morphine, oxycodone Urine drug screen [facility] 04/24/18 - consistent with prescribed morphine , oxycodone 07/15/18 - loss/ theft pain medication while in [place] - reset refill dates Urine drug screen [facility] 03/12/19 - consistent with prescribed morphine , oxycodone Urine drug screen [facility] 11/25/19 - consistent with prescribed analgesics Urine drug screen [facility] 04/16/21 - consistent with prescribed analgesics Urine drug screen [facility] 09/24/22 - consistent with prescribed morphine, oxycodone Urine drug screen [facility] 08/08/23 - consistent with prescribed morphine, oxycodone Idiopathic peripheral neuropathy 03/13/2014 Arthralgia of multiple joints 12/20/2013 Cervical post-laminectomy syndrome 09/30/2012 Chronic pain 09/30/2012 Anaclitic depression 09/30/2012 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 09/30/2012 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 09/30 Cervical radiculopathy 10/31/2009 Lumbago 02/28/2009 Osteoporosis 02/28/2009 Encounter for preventive health examination 09/24 Pain of both hip joints 07/29/2008 Encounters Date Type Department Care Team Description 07/30/2024 10:08 AM SMOKE CONTROL SUPERVISOR - 07/30/2024 11:59 PM [facility] Hospital Encounter [address] [address] Discharge Disposition: Discharge to home or self care 07/30/2024 9:30 AM SMOKE CONTROL SUPERVISOR - 07/30/2024 11:59 PM SMOKE CONTROL SUPERVISOR Hospital Encounter [facility] [address] [facility] [address] [place] [address] Wally Rodgers MD Postlaminectomy syndrome of cervical region (Primary Dx); Primary osteoarthritis of left hip; Chronic use of opiate drug for therapeutic purpose Discharge Disposition: Discharge to home or self care 07/15/2024 Telephone [facility] [address] [facility] [address] [place] [address] Wally Rodgers MD 05/13/2024 Documentation [facility] [address] [facility] [address] [place] [address] Imtiaz Pop [facility] Social Work Services 05/08/2024 8:55 AM SMOKE CONTROL SUPERVISOR - 05/08/2024 11:59 PM SMOKE CONTROL SUPERVISOR Hospital Encounter [facility] [address] [facility] [address] [place] [address] Analilia Trinidad NP Lack of access to adequate food (Primary Dx); Cervical post-laminectomy syndrome; Idiopathic peripheral neuropathy; Primary osteoarthritis of left hip Discharge Disposition: Discharge to home or self care from Last 3 Months Immunizations Immunization Administration Dates Next Due Influenza, Unspecified 05/11/2021 Moderna SARS-CoV-2 Monovalent Vaccination (12+ Y RS) 07/27/2020 Surgical History Surgery Date Site/Laterality Comments NECK SURGERY Neck Surgery - x 7 (Added by TW Conv) ME TOTAL ABDOMINAL HYSTERECT W/WO RMVL TUBE OVARY Hysterectomy - (Added by TW Conv) HIP SURGERY Right femoral fracture ULNAR NERVE TRANSPOSITION Right Medical History Medical History Date Comments Hypertension Arthritis Cervical postlaminectomy syndrome Chronic pain Cervical radiculopathy Depression Idiopathic peripheral neuropathy osteoporosis Rotator cuff syndrome Ulnar nerve palsy right Hip pain Neck pain Leg pain Foot pain Neck pain Back pain Foot pain, bilateral Hip pain, bilateral Leg pain, bilateral Pneumonia Family History Medical History Relation Name Comments parkinson's Brother 1 Colon cancer Brother 2 No Known Problems Brother 3 Diabetes Brother 4 ALS Father Diabetes Mother Heart disease Mother Diabetes Sister 1 No Known Problems Sister 2 No Known Problems Sister 3 Relation Name Status Comments Brother 1 Alive Brother 2 Alive Brother 3 Alive Brother 4 Father Mother Sister 1 Alive Sister 2 Alive Sister 3 Alive Social History Tobacco Use Types Packs/Day Years Used Date Smoking Tobacco: Former Cigarettes 1 40 1 - 2021 Passive Smoke Exposure: Past Smokeless [...] on file Legal Sex Female 7:47 PM SMOKE CONTROL SUPERVISOR Gender Identity Not on file Sexual Orientation Not on file Obstetrics History Last Filed Vital Signs Vital Sign Reading Time Taken Comments Blood Pressure 149/89 07/30/2024 9:41 AM SMOKE CONTROL SUPERVISOR Pulse 88 07/30/2024 9:41 AM SMOKE CONTROL SUPERVISOR Temperature 36.4 C (97.5 F) 07/30/2024 9:41 AM SMOKE CONTROL SUPERVISOR Respiratory Rate 18 07/30/2024 9:41 AM SMOKE CONTROL SUPERVISOR Oxygen Saturation 90% 07/30/2024 9:41 AM SMOKE CONTROL SUPERVISOR Inhaled Oxygen Concentration - - Weight 59 kg (130 lb) 07/30/2024 9:41 AM SMOKE CONTROL SUPERVISOR Height 160 cm (5' 3 ) 07/30/2024 9:41 AM SMOKE CONTROL SUPERVISOR Body Mass Index 23.03 07/30/2024 9:41 AM SMOKE CONTROL SUPERVISOR Plan of Treatment Health Maintenance Due Date Last Done Comments Breast Cancer Screening-Mammogram 1955 Colon Cancer Screening-Colonoscopy 1955 Fall Risk Assessment 1955 Hepatitis C Screening 1955 DTaP/Tdap/Td Vaccine (1 - Tdap) 1964 Hepatitis B Screening 09/01/1971 Lung Cancer Screening 09/01/2003 Pneumococcal vaccine 65+ (1 of 1 - PCV) 09/01/2003 Zoster Vaccine (1 of 2) 09/01/2003 Well Visit 65+ 2018 Depression Screening 01/02/2019 01/02/2018, 01/03/20 18 Covid-19 Vaccine ( season) 2024 05/11/2021, 08/25/2020, 07/27/2020 Influenza Vaccine (#1) 2024 05/11/2021 Osteoporosis Screening-Bone Density Scan 10/21/2025 10/22/2023, 01/22/2022 Goals Goal Patient Goal Type Associated Problems Recent Progress Patient-Stated? Author CCM Chronic Pain Care Plan Chronic Care Management No change(07/30 9:42 AM SMOKE CONTROL SUPERVISOR) No Keri krause, Eliza Castrejon RN Note: Problem: Chronic Pain Goals: 1. Minimize further functional decline 2. Maximize quality of life 3. Control pain Strategies: - Activity/exercise program recommendation - Conservative stepwise pain medicine strategy with multi-disciplinary approach - Recommend healthy lifestyle strategies and compensatory methods as needed Medical Devices Implanted Type Area Aerospace Quality Engineer Device Identifier Shelf Expiration Date Model / Serial / Lot Screws And Cage N/A: Neck Screws And Rods Right: Femur [employer] [id number] Vertaplex Hv Autoplex Without Needle Delivery System Kit Bone - [id number] Implanted:Qty: 1 on 07/03/2019 by Alvarez Cui MD at [facility] [employer] [id number] / / Procedures Procedure Name Priority Date/Time Associated Diagnosis Comments TARGET OPIOID SCREEN BY INGOT PASSER Routine 07/30/2024 10:08 AM SMOKE CONTROL SUPERVISOR DRUGS OF ABUSE SCREEN, URINE WITH REFLEX CONFIRMATION Routine 07/30/2024 10:08 AM SMOKE CONTROL SUPERVISOR DEXA AXIAL SKELETON BONE DENSITY 1 OR MORE SITES Schedule Routine, Read Routine (OP Routine) 10/22/2023 11:24 AM CDT Osteoporosis, unspecified osteoporosis type, unspecified pathological fracture presence from Last 3 Months or Most Recently Relevant to Health Maintenance Results * Targeted Opioid Screen, Ur (07/30/2024 10:08 AM SMOKE CONTROL SUPERVISOR) Pain mgt 6-Acetylmorphine, Ur Not Detected CutOff 10 ng/mL Pain mgt Buprenorphine, Ur Not Detected CutOff 5 ng/mL [facility] Pain mgt Buprenorphine metabolite (Norbuprenorphine), Ur Not Detected CutOff 5 ng/mL [facility] Pain mgt Codeine, Ur Not Detected CutOff 25 ng/mL [facility] Pain mgt Hydrocodone, Ur Not Detected CutOff 25 ng/mL [facility] Pain mgt Hydromorphone, Ur Not Detected CutOff 25 ng/mL [facility] Pain mgt Methadone, Ur Not Detected CutOff 25 ng/mL [facility] Pain mgt Methadone Metabolite (EDDP), Ur Not Detected CutOff 25 ng/mL [facility] Pain mgt Morphine, Ur Detected CutOff 25 ng/mL [facility] Pain mgt Oxycodone, Ur Detected CutOff 25 ng/mL [facility] Pain mgt Oxymorphone, Ur Detected CutOff 25 ng/mL [facility] Pain mgt Tapentadol, Ur Not Detected CutOff 25 ng/mL [facility] Pain mgt Tramadol, Ur Not Detected CutOff 25 ng/mL [facility] Pain mgt Tramadol metabolite (O-desmethyltramado l), Ur Not Detected CutOff 25 ng/mL [facility] Comment: Interpretive Data This test only [...] developed and its performance characteristics determined by [facility]. It has not been cleared or approved by the U.S. Food and Drug Administration. Current interpretive data was last revised 18. Pain mgt Naloxone, ur Not Detected cutoff 20 ng/ml [facility] Urine 07/30/2024 10:0 8 AM SMOKE CONTROL SUPERVISOR 07/30/2024 4:49 PM SMOKE CONTROL SUPERVISOR us Wally Rodgers MD LAB URINE ORDERABLES Final Re sult [facility] [address] [facility] [place] [address] * (ABNORMAL) Drugs of Abuse Screen, Urine with Reflex Confirmation (07/30/2024 10:08 AM [facility]) [facility] Amphetamine, ur Not Detected CutOff 500ng/mL Comment: Interpretive Data - Amphetamines: Samples containing greater than 500 ng/mL d-methamphetamine or other cross-reacting amphetamine compounds are reported as positive. Amphetamine immunoassays are subject to significant false positive rates due to cross-reactivity of non-amphetamine drugs. Confirmatory testing required for definitive results. Current Interpretive Data was last reviewed 2022. Barbiturates, ur Not Detected CutOff 200ng/mL [facility] Comment: Interpretive Data - Barbiturates: Samples containing greater than 200 ng/mL secobarbital or other cross-reacting barbiturate compounds are reported as positive. False positive and false negative results are possible. Confirmatory testing required for definitive results. Current Interpretive Data was last reviewed 2022. Benzodiazepines, ur Not Detected CutOff 100ng/mL [facility] Comment: Interpretive Data - Benzodiazepines: Samples containing greater than 100 ng/mL nordiazepam or other cross-reacting compounds are reported as positive. False positive and false negative results are possible. Confirmatory testing required for definitive results. Current Interpretive Data was last reviewed 2022. Cannabinoids, ur Not Detected CutOff 50 ng/mL [facility] Comment: Interpretive Data - Cannabinoids: Samples containing greater than 50 ng/mL delta-9 THC -COOH or other cross- reacting compounds are reported as positive. False positive and false negative results are possible. Confirmatory testing required for definitive results. Current Interpretive Data was last reviewed 2022. Cocaine, ur Not Detected CutOff 150ng/mL [facility] Comment: Interpretive Data - Cocaine: Samples containing greater than 150 ng/mL benzoylecgonine or other cross- reacting compounds are reported as positive. False positive and false negative results are possible. Confirmatory testing required for definitive results. Current Interpretive Data was last reviewed 2022. Fentanyl, Ur Not Detected CutOff 5 ng/mL [facility] Comment: Interpretive Data - Fentanyl: Samples containing greater than 5 ng/mL norfentanyl, fentanyl, or other cross-reacting fentanyl compounds are reported as positive. False positive and false negative results are possible. Confirmatory testing required for definitive results. Current Interpretive Data was last reviewed 2023. Methadone, ur Not Detected CutOff 300ng/mL [facility] Comment: Interpretive Data - Methadone: Samples containing greater than 300 ng/mL d,l-methadone or other cross-reacting compounds are reported as positive. False positive and false negative results are possible. Confirmatory testing required for definitive results. Current Interpretive Data was last reviewed 2022. Opiates, ur Screen Positive, presumptive (A) CutOff 300ng/mL [facility] Comment: Interpretive Data - Opiates: Samples containing greater than 300 ng/mL morphine or other cross-reacting compounds are reported as positive. False positive and false negative results are possible. Confirmatory testing required for definitive results. Current Interpretive Data was last reviewed 2022. Oxycodone, ur Screen Positive, presumptive (A) CutOff 100ng/mL [facility] Comment: Interpretive Data - Oxycodone: Samples containing greater than 100 ng/mL oxycodone or other cross-reacting compounds are reported as positive. False positive and false negative results are possible. Confirmatory testing required for definitive results. Current Interpretive Data was last reviewed 2022. Phencyclidine, ur Not Detected CutOff 25 ng/mL [facility] Comment: Interpretive Data - Phencyclidine: Samples containing greater than 25 ng/mL phencyclidine or other cross-reacting compounds are reported as positive. False positive and false negative results are possible. Confirmatory testing required for definitive results. Current Interpretive Data was last reviewed 2022. Urine Creatinine 56 mg/dL [facility] Comment: Interpretive Data Urine Creatinine: < 10 mg/dL is extremely dilute = or > 10 but < 20 mg/dL is dilute = or > 20 mg/dL is normal Current Interpretive Data was last revised on 2017. Urine 07/30/2024 10:0 8 AM SMOKE CONTROL SUPERVISOR 07/30/2024 4:49 PM SMOKE CONTROL SUPERVISOR Narrative [facility] - 07/30/2024 5:27 PM SMOKE CONTROL SUPERVISOR Drug of Abuse screening is performed by immunoassay for medical purposes only. This is not to be used for Pain Management purposes. If Detected, confirmation testing will be performed for Amphetamines, Cocaine, Fentanyl, Methadone, Opiates, Oxycodone or Phencyclidine. us Wally Rodgers MD LAB URINE ORDERABLES Final Re sult [facility] [address] [facility] [place] [address] * Dexa Axial Skeleton Bone Density 1 or 2 Site (10/22/2023 11:24 AM CDT) Anatomical Region Laterality Modality Body N/A Radiographic Kaitlin ging Narrative 10/22/2023 9:56 PM CDT Patient Name: Megan Trunog Date of : 1955 Date of scan: 10/22/2023 Bone mineral density was performed on a [employer] Discovery Densitometer. Based on machine cross-calibration and [...] by the International Society of Clinical Densitometry. [id number] Soraya Andres DO G DXA PROCEDURES Rashmi l Result from Last 3 Months or Most Recently Relevant to Health Maintenance Insurance MEDICARE [facility] MEDICARE [facility] MEDICARE Care Teams Evaporator Supervisor Relationship Specialty Start Date End Date Rosalia Milian MD PCP - General Family Medicine 12/25/21
--- OUTSIDE RECORDS SUMMARY | 2024-08-03 07:30 | XMS_ITS | Encounter Summary ---
Author Organization [facility] Healthcare Address [address] [place] [address] Care Team Providers Care Culvert Installer Name Role Phone Rosalia Milian MD Primary Care Provider + Reason for Visit * Reason Onset Date Comments carmen villafana/Analilia 03/03/2024 Encounter Details Date Type Department Care Team (Late st Contact Info) Description 03/03/2024 Telephone [facility] [place] [facility] [address] [place], [place] [id number] Wally Rodgers MD [address] [facility] [address] [facility] [phone] [place], [place] [id number] carmen Armando Social History Tobacco Use Types Packs/Day Years Used Date Smoking Tobacco: Former Cigarettes 1 40 1 982 - 2 Passive Smoke Exposure: Past Smokeless Tobacco: Never Alcohol Use Standard Drinks/Week Comments Never 0 (1 standard drink = 0.6 oz pur e alcohol) AUDIT-C Answer Date Recorded Q1: How often do you have a drink containing alc ohol? Never 11/05/2023 Average Number of Drinks Not on file 024 Frequency of Binge Drinking Not on file 10/25 Comments No Sex and Gender Information Value Date Recorded Sex Assigned at Not on file Legal Sex Female 7:47 PM COMMUNICATIONS EDITOR Gender Identity Not on file Sexual Orientation Not on file documented as of this encounter Plan of Treatment Not on file documented as of this encounter Goals Goal Patient Goal Type Associated Problems Recent Progress Patient-Stated? Author CCM Chronic Pain Care Plan Chronic Care Management No change(07/30 9:42 AM COMMUNICATIONS EDITOR) No Keri krause, Eliza Castrejon RN Note: Problem: Chronic Pain Goals: 1. Minimize further functional decline 2. Maximize quality of life 3. Control pain Strategies: - Activity/exercise program recommendation - Conservative stepwise pain medicine strategy with multi-disciplinary approach - Recommend healthy lifestyle strategies and compensatory methods as needed documented as of this encounter Visit Diagnoses Not on filedocumented in this encounter Care Teams Culvert Installer Relationship Specialty Start Date End Date Rosalia Milian MD PCP - General Family Medicine 12/25/21 documented as of this encounter
--- OUTSIDE RECORDS SUMMARY | 2024-08-03 07:31 | XMS_ITS | Referral Summary ---
Author Organization [facility] [employer] Address [address] [facility] [place] [address] Care Team Providers Care Treating Plant Pumper Name Role Phone Rosalia Milian MD Primary Care Provider [phone] Source Comments [facility] [employer],non-owned Affiliates and Associated Physician Practices is amultiple site organization consisting of ambulatory clinics and hospital sitesin [place], [place], [place]. This disclosure is being madepursuant to the Care Everywhere program and may not contain all information available regarding this patient. Last updated 18.[employer] Allergies No known active allergies Medications * Be aware that medications may not be up to date on this document. Alwaysverify current medications with the patient. Medication Sig Dispensed Refills Start Date End Date Status DULoxetine (Cymbalta) 30 MG capsuleIndications: Major Depressive Disorder Take 1 (one) capsule by mouth once daily Reasons: Major Depressive Disorder 30 capsule 01/17/2024 Active mirtazapine (Remeron) 7.5 MG tablet Take 1 (one) tablet by mouth at bedtime 30 tablet 01/17/2024 Active Social History Tobacco Use Types Packs/Day Years Used Date Smoking Tobacco: Every Day Cigarettes Smokeless Tobacco: Never Tobacco Cessation:Ready to Q uit: Not Asked; Counseling Given: Not Answered Sex and Gender Information Value Date Recorded Sex Assigned at Not on file Gender Identity Not on file Sexual Orientation Not on file Last Filed Vital Signs Vital Sign Reading Time Taken Comments Blood Pressure 156/106 01/17/2024 11:34 AM CDT Pulse 92 01/17/2024 11:34 AM CDT Temperature 36.8 C (98.2 F) 01/17/2024 11:34 AM CDT Respiratory Rate 18 01/17/2024 11:34 AM CDT Oxygen Saturation - - Inhaled Oxygen Concentration - - Weight 56.7 kg (125 lb) 01/17/2024 11:34 AM CDT Height 165.1 cm (5' 5 ) 01/17/2024 11:34 AM CDT Body Mass Index 20.8 01/17/2024 11:34 AM CDT Plan of Treatment Not on file Care Teams Treating Plant Pumper Relationship Specialty Start Date End Date Rosalia Milian MD [address] [place] [address] PCP - General Family Medicine 01/17/24
--- OUTSIDE RECORDS SUMMARY | 2024-08-03 07:31 | XMS_ITS | Encounter Summary ---
Author Organization [facility] Healthcare Address [address] [place] [address] Care Team Providers Care Internal Grinder Name Role Phone Rosalia Milian MD Primary Care Provider + Encounter Details Date Type Department Care Team (Late st Contact Info) Description 05/04/2022 Telephone [facility] [place] [facility] [address] [facility] [address] [place] [address] Wally Rodgers MD [address] [facility] [address] [facility] [id number] [place], [place] [id number] Social History Tobacco Use Types Packs/Day Years Used Date Smoking Tobacco: Former Cigarettes 1 40 1 982 - 2021 Smokeless Tobacco: Never Alcohol Use Standard Drinks/Week Comments Never 0 (1 standard drink = 0.6 oz pur e alcohol) AUDIT-C Answer Date Recorded Q1: How often do you have a drink containing alcohol? Never 04/30/2022 Q2: How many drinks containi ng alcohol do you have on a typical day when you are drinking? Patient does not drink Frequency of Binge Drinking Not on file 09/2021 Comments No Sex and Gender Information Value Date Recorded Sex Assigned at Not on file Legal Sex Female 7:47 PM PODIATRY TEACHER Gender Identity Not on file Sexual Orientation Not on file documented as of this encounter Plan of Treatment Not on file documented as of this encounter Goals Goal Patient Goal Type Associated Problems Recent Progress Patient-Stated? Author CCM Chronic Pain Care Plan Chronic Care Management No change(07/30 9:42 AM PODIATRY TEACHER) No Eliza Billings RN Note: Problem: Chronic Pain Goals: 1. Minimize further functional decline 2. Maximize quality of life 3. Control pain Strategies: - Activity/exercise program recommendation - Conservative stepwise pain medicine strategy with multi-disciplinary approach - Recommend healthy lifestyle strategies and compensatory methods as needed documented as of this encounter Visit Diagnoses Not on filedocumented in this encounter Care Teams Internal Grinder Relationship Specialty Start Date End Date Rosalia Milian MD PCP - General Family Medicine 12/25/21 documented as of this encounter
--- OUTSIDE RECORDS SUMMARY | 2024-08-03 07:31 | XMS_ITS | Clinical Summary ---
Author Organization [facility] [employer] Address [address] [place] [address] Care Team Providers Care Lpn Rn Name Role Phone Rosalia Milian MD Primary Care Provider [phone] Source Comments [facility] [employer],non-owned Affiliates and Associated Physician Practices is amultiple site organization consisting of ambulatory clinics and hospital sitesin [place], [place], [place] and [place]. This disclosure is being madepursuant to the Care Everywhere program and may not contain all information available regarding this patient. Last updated 18.authorGEN Allergies No known active allergies Medications * [...] 01/17/2024 11:34 AM CDT Plan of Treatment Health Maintenance Due Date Last Done Comments COLOGUARD (AGES 45-75) - COL ON CA SCREENING 1953 COLON MONITORING 1953 COLONOSCOPY - COLON CA SCREENING 1953 CT COLONOGRAPHY - COLON CA SCREENING 1953 Colorectal Cancer Screening 1953 FIT - COLON CA SCREENING 1953 FLEX SIG - COLON CA SCREENING 1953 LIPID TESTING 1953 MAMMOGRAM 1953 MEDICARE AWV 12 MONTHS 1953 HEPATITIS C SCREENING 08/27/1971 DTAP/TDAP/TD VACCINES (1 - Tdap) 1972 PNEUMOCOCCAL VACCINE 50+ (1 of 2 - PCV) 1972 ZOSTER VACCINE (1 of 2) 09/01/2003 COVID-19 VACCINE (2 - 2023-2 5 season) 2024 07/27/2020 INFLUENZA VACCINE (#1) 2024 DEPRESSION SCREENING 05/27/2024 Respiratory Syncytial Virus (RSV) Vaccine Pt: or over 60 yrs (1 - 1-dose 75+ series) 2028 BONE DENSITY TESTING Completed 10/22/2023, 01/22/2022 HEPATITIS B VACCINE Aged Out No longe r eligible based on patient's age to complete this topic HIB VACCINE Aged Out No longer eligi ble based on patient's age to complete this topic HPV VACCINE Aged Out No longer eligi ble based on patient's age to complete this topic MENINGOCOCCAL (Group B) VACCINE Aged Out No longer eligible b ased on patient's age to complete this topic MENINGOCOCCAL VACCINE Aged Out No mallory lakshmi eligible based on patient's age to complete this topic Care Teams Lpn Rn Relationship Specialty Start Date End Date Rosalia Milian MD [address] [place] [id number] PCP - General Family Medicine 01/17/24
--- OUTSIDE RECORDS SUMMARY | 2024-08-03 07:31 | XMS_ITS | Data Portability ---
Author Organization [facility]ISP[facility] Peacock Address [address] 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 Plan of Treatment Reminders Order Date Submit Date Provider Last Modified By Organization Details Last Modified Time Details Appointments ANY 15 2024 11:15A M JOEL Xiao Not available Not available Not available Lab HbA1c (hemoglob in A1c), blood 2024 025 Saqina [facility], [address], [place], [address], 06/26/2024 13:50:31 TSH + free T4, serum 2024 025 Saqina [facility], [address], [place], [address], 06/26/2024 13:46:04 vitamin B12 + folate, serum or blood 2024 025 Saqina [facility], [address], [place], [address], 06/26/2024 13:54:10 iron + TIBC + ferritin, serum 2024 025 Saqina [facility], [address], [place], [address], 06/26/2024 13:46:15 CBC w/ auto diff 2024 025 [email or web address] [facility], [address], [place], [address], 06/26/2024 13:50:42 hepatic function panel, serum 2024 025 [email or web address], [address], [place], [address], 06/26/2024 13:54:17 BMP, serum or plasma 2024 025 [email or web address], [address], [place], [address], 06/26/2024 13:46:20 magnesium , serum or plasma 2024 025 MARILEE [facility], [address], [place], [address], 06/26/2024 13:54:40 lipid panel, serum 2023 024 [email or web address], [address], [place], [address], 03/17/2024 12:13:52 hepatic function panel, serum 2023 024 [email or web address], [address], [place], [address], 03/17/2024 12:13:05 CBC w/ auto diff 2023 024 [email or web address], [address], [place], [address], 03/17/2024 12:13:21 BMP, serum or plasma 2023 024 [email or web address], [address], [place], [address], 03/17/2024 12:13:35 TSH + free T4, serum 2023 [facility], [address], [place], [address], 03/17/2024 12:14:00 Referral None recorded. Procedures None recorded. Surgeries None recorded. Imaging CT, head, w/o contrast [address] (Imaging), [address], [place], [address], 07/21/2024 09:52:31 Medication Orders mupirocin 2 % topical ointment 2024 [facility] [address] [place], [address], 06/30/2024 11:55:42 Bactrim DS 800 mg-160 mg tablet 2024 025 [facility] [address] [place], [address], 06/30/2024 11:55:44 doxycycli ne hyclate 100 mg capsule 2024 025 [facility] [address] [place], [address], 06/30/2024 11:45:45 Augmentin 875 mg-125 mg tablet 2024 025 [facility] [address] [place], [address], 06/30/2024 11:47:00 duloxetin e 30 mg capsule,d elayed release 2023 024 [facility] [address] [place], [address], 02/26/2024 16:07:25 Patient TargetsNo targets recorded. Patient InstructionsNo instructions recorded. Reason for Referral None Reported. Results Created Date Observation Date Name Description Value Unit Range Abnormal Flag Note LastModifiedBy Organization Detail LastModifiedTime Result Notes None recorded. Problems Name Problem SNOMED Code Status Onset Date Resolution Date Notes Provider Name and Address Organization Details Recorded Time Body mass index 20-24 - normal 169909964 Active 2023 Jina Dennis MA null, [place] - [facility] 4 15:54:05 Osteoporosis 69770247 Active 2023 JOEL Xiao Attn: Accountin g,[address] [place], [address], [place] [facility] 4 16:06:06 Vitamin D deficiency 00428840 Active 2023 JOEL Xiao Attn: Accountin g,[address] [place], [address], [place] [facility] 4 16:06:07 Benign essential hypertension 8023537 Active 2023 JOEL Xiao Attn: Accountin g,[address] [place], [address], [place] [facility] 4 16:06:08 Osteoarthritis of hip 638893518 Active 2023 JOEL Xiao Attn: Accountin g,[address] [place], [address], [place] [facility] 4 16:06:09 Depressive disorder 29507637 Active 2023 JOEL Xiao Attn: Accountin g,[address] [place], [address], [place] [facility] 4 16:06:39 Long-term drug therapy Active 2023 JOEL Xiao Attn: Accountin g,[address] [place], [address], [place] [facility] 4 13:15:18 Impaired fasting glycemia 525692071 Active 2024 JOEL Xiao Attn: Yojana g,[address] [place], [address], [place] [facility] 5 09:42:35 Loss of hair 223830595 Active 2024 JOEL Xiao Attn: Yojana felicia,[address] [facility], [place], [address], [place] [facility] 5 09:42:49 Infection of tooth 267038166 Active 2024 JOEL Xiao Attn: Yojana felicia,[address] [facility], [place], [address], [place] [facility] 5 09:42:51 Headache 48402599 Active 2024 JOEL Xiao Attn: Yojana felicia,[address] [place], [address], [place] [facility] 5 20:39:30 Staphylococcal infection of skin 125799098 Active 2024 JOEL Xiao Attn: Yojana felicia,[address] [facility], [place], [address], [place] [facility] 5 20:39:33 Problem Notes None recorded. Procedures Surgical History Date Name Laterality Status Provider Name and Address Organization Details Recorded Time hysterectomy completed J[place] 02/26/2024 15:52:20 operation on hip joint completed J[place] [facility] 02/26/2024 15:52:44 Back Surgery completed Jina [place] [facility] 02/26/2024 15:52:57 procedure on [place] completed Jina [place] [facility] 02/26/2024 15:53:09 Imaging Results None recorded. Procedure Notes None recorded. Medical Equipment None Reported. Allergies Allergen ID Allergen Name Allergen Category Reaction Reaction Severity Criticality Documentation Date Start Date Code Code System Note Provider Name and Address Organization Details Recorded Time 819444 clindamyc in Not available Not available Not available Not available 02/26/2024 2582 RxNorm Not Available Not Available Not Available Medications Name Sig Start Date Stop Date Status Note LastModified by Organization Details LastModified Time doxycycline hyclate 100 mg capsule Take 1 capsule twice a day by oral route with meal(s). 06/30 completed Not Available Not Available Not Available azithromyci n 250 mg tablet TAKE 2 TABLETS BY MOUTH ON DAY 1, AND THEN TAKE 1 TABLET BY MOUTH ONCE A DAY ON DAY 2 THROUGH DAY 5 02/25 completed Not Available Not Available Not Available valacyclovi r 1 gram tablet Take 2 tablets every 12 hours by oral route as needed for 1 day, for cold sore flare up. 2023 active Not Available Not Available Not Avai lable lisinopril 20 mg tablet Take 1 tablet every day by oral route. active Not Available Not Available No t Available sulfamethox azole 800 mg-trimetho prim 160 mg tablet TAKE 1 TABLET BY MOUTH EVERY 12 HOURS WITH MEALS active Not Available Not Available No t Available oxycodone 15 mg tablet Take 1 tablet every 6 hours by oral route. active Not Available Not Available No t Available benzonatate 100 mg capsule TAKE 1 CAPSULE BY MOUTH THREE TIMES DAILY NEEDED FOR COUGH 02/25 completed Not Available Not Available Not Available morphine ER 15 mg tablet,exte nded release Take 2 tablets every 12 hours by oral route. active Not Available Not Available No t Available mupirocin 2 % topical ointment APPLY A SMALL AMOUNT TO THE AFFECTED AREA OF FACE THREE TIMES DAILY active Not Available Not Available No t Available ergocalcife rol (vitamin D2) 1,250 mcg (50,000 unit) capsule TAKE 1 CAPSULE BY MOUTH ONCE A WEEK active Not Available Not Available No t Available albuterol sulfate HFA 90 mcg/actuati on aerosol inhaler INHALE 1 TO 2 PUFFS BY MOUTH EVERY 4 TO 6 HOURS NEEDED FOR SHORTNESS OF BREATH FOR WHEEZING active Not Available Not Available No t Available amoxicillin 875 mg-potassiu m clavulanate 125 mg tablet TAKE 1 TABLET BY MOUTH EVERY 12 HOURS WITH MEALS active Not Available Not Available No t Available duloxetine 30 mg capsule,del ayed release TAKE 1 CAPSULE BY MOUTH ONCE DAILY active Not Available Not Available No t Available duloxetine 60 mg capsule,del ayed release TAKE 1 CAPSULE BY MOUTH ONCE DAILY active Not Available Not Available No t Available fluticasone 113 mcg-salmete rol 14 mcg/actuati on breath activated powdr INHALE 1 PUFF BY MOUTH TWICE DAILY . RINSE AND SPIT 02/25 completed Not Available Not Available Not Available Vitals Date Recorded Body height Respiratory rate Body mass index (BMI) Body weight Oxygen saturation Oxygen saturation in Arterial blood by Pulse oximetry Heart rate Systolic blood pressure Diastolic blood pressure Provider Name and Address Organization Details Last Updated DateTime 4 160.02 cm 20 /min 22.1 kg/m2 46653.0 5 g 96 % 96 % 85 /min 118 mm[Hg] 88 mm[Hg] Jina Dennis MA [facility] 4 15:56:12 Date Recorded Systolic blood pressure Diastolic blood pressure Provider Name and Address Organization Details Last Updated DateTime 02/26/2024 140 mm[Hg] 90 mm[Hg] JOEL Xiao Attn: [address]ing[address] [place], [address], [facility] 02/26/2024 16:13:17 Date Recorded Body height Body mass index (BMI) Body weight Oxygen saturation Oxygen saturation in Arterial blood by Pulse oximetry Heart rate Respiratory rate Systolic blood pressure Diastolic blood pressure Provider Name and Address Organization Details Last Updated DateTime 5 160.02 cm 23.7 kg/m2 84346.3 8 g 95 % 95 % 82 /min 20 /min 150 mm[Hg] 82 mm[Hg] Jina Dennis MA [facility] 5 09:21:32 Date Recorded Systolic blood pressure Diastolic blood pressure Provider Name and Address Organization Details Last Updated DateTime 05/29/2024 160 mm[Hg] 80 mm[Hg] JOEL Xiao Attn: Accounting[address] [place], [address], [facility] 05/29/2024 09:36:06 Date Recorded Body height Body mass index (BMI) Body weight Respiratory rate Oxygen saturation Oxygen saturation in Arterial blood by Pulse oximetry Heart rate Systolic blood pressure Diastolic blood pressure Provider Name and Address Organization Details Last Updated DateTime 5 160.02 cm 23.6 kg/m2 72099.7 9 g 20 /min 95 % 95 % 70 /min 146 mm[Hg] 82 mm[Hg] Jina Dennis MA [facility] 11:31:09 Social History Question Answer Notes LastModified by Organizat ion Details LastModified Time Tobacco Smoking Status Current Every Day Smoker Jina Dennis MA [facility], [facility] 02/26/2024 15:51:54 Do You Have An Advance Directive? No Information not available 02/26/2024 What Is Your Level Of Alcohol Consumption? None Information not available 02/26/2024 Are You Blind Or Do You Have Difficulty Seeing? No Glasses Information not available 02/26/2024 What Is Your Level Of Caffeine Consumption? Occasional Coffee/sod a Information not available 02/26/2024 In The 14 Days Before Symptom Onset, Have You Had Close Contact With A Laboratory-confir med COVID-19 While That Case Was Ill? No Information not available 02/26/2024 In The 14 Days Before Symptom Onset, Have You Had Close Contact With A Person Who Is Under Investigation For COVID-19 While That Person Was Ill? No Information not available 02/26/2024 Have You Been To An Area Known To Be High Risk For COVID-19? No Information not available 02/26/2024 Are You Deaf Or Do You Have Serious Difficulty Hearing? No Information not available 02/26/2024 What Type Of Diet Are You Following? REGULAR Information not available 02/26/2024 Are There Any Guns Present In Your Home? No Information not available 02/26/2024 What Was The Date Of Your Most Recent Tobacco Screening? 06/30/2024 Information not available 06/30/2024 What Is Your Current Pack Years? 30ormorepacky ears Information not available 02/26/2024 Do You Use Your Seat Belt Or Car Seat Routinely? Yes Information not available 02/26/2024 Do You Have Smoke And Carbon Monoxide Detectors In Your Home? Yes Information not available 02/26/2024 How Much Tobacco Do You Smoke? 1 PPD 3 A Day Trying To Quit To 1/4 Pack Information not available 06/30/2024 Do You Use Any Illicit Or Recreational Drugs? No Information not available 02/26/2024 Do You Use Sunscreen Routinely? No Information not available 02/26/2024 Has Tobacco Cessation Counseling Been Provided? No Information not available 02/26/2024 How Many Years Have You Smoked Tobacco? 30 Information not available 02/26/2024 Do You Or Have You Ever Used Any Other Forms Of Tobacco Or Nicotine? No Information not available 02/26/2024 Sex: Female Functional Status Question Answer Note LastModified by Organization D etails LastModified Time Are you able to care for yourself? Yes Information n ot available 02/26/2024 What is your exercise level? None Information not available 02/26/2024 Mental Status None recorded. Family History Relationship Description Onset Age of this Age Resolved Age Notes LastModified by Organization Details LastModified Time Brother Family history of cancer of colon tcarterma Not available 2023 16:14:51 Brother Diabetes mellitus tcarterma Not available 2023 16:15:01 Mother Diabetes mellitus tcarterma Not available 2023 16:15:01 Mother Heart disease tcarterma Not available 2023 16:15:06 Sister Diabetes mellitus tcarterma Not available 2023 16:15:01 Medical History Condition Response Coronary Artery Disease N Other N High Blood Pressure N Atrial Fibrillation N Kidney or Bladder Problems N Thyroid Problems N GI Problems N Depression N COPD N Blood Clots N Have you had a mammogram in the last yea r? N Skin Problems N Anemia N Heart Attack ([place]) N Anxiety Disorder N Diabetes N Muscle, Joint, or Bone Problems N Seizures/Epilepsy N Have you had a colonoscopy in the last 1 0 years? N Acid Reflux (GERD) N Cancer N Stroke N Asthma N Allergies N Have you had a PSA blood test in the las t year? N High Cholesterol N Hepatitis N Liver Disease N Headaches N Heart Failure N Osteoporosis N Gynecological History Statement/Question Response Menses Monthly N Current Control Method None Obstetrics History GPAL:G 2 P 2 0 0 2 Type Value Full Term 2 Induced 0 Spontaneous 0 Premature 0 Living 2 Total 2 Immunizations Vaccine Type Date Status Note Provider Nam e and Address Organization Details Recorded Time Influenza, high-dose, quadrivalent, PF 05/11/2021 completed SHANNEN [place], [place] [facility] 03/18/2024 10:19:15 COVID-19, mRNA, LNP-S, PF, 100 mcg/0.5mL dose or 50 mcg/0.25mL dose 07/27/2020 completed SHANNEN [place], [place] [facility] 03/18/2024 10:19:15 COVID-19, mRNA, LNP-S, PF, 100 mcg/0.5mL dose or 50 mcg/0.25mL dose 08/25/2020 completed SHANNEN [place], [place] [facility] 03/18/2024 10:19:15 COVID-19, mRNA, LNP-S, PF, 100 mcg/0.5mL dose or 50 mcg/0.25mL dose 05/11/2021 completed SHANNEN [place], [place] [facility] 03/18/2024 10:19:15 Past Encounters Encounter ID Performer Location Encounter Start Date Encounter Closed Date Diagnosis/Indication Diagnosis SNOMED-CT Code Diagnosis ICD10 Code Diagnosis Note [id number] JOEL Xiao [facility] [place] [address] [place] [address] 02/26/2024 15:00:43 03/05/2024 11:54:50 Body mass index 20-24 - normal 364386558 Z68.22 BMI is 22.1 Osteoarthritis of hip 23 8510355 M16.9 Patient has plans for upcoming hip surgery once she gets off of nicotine. She is taking chronic pain medication s at this time for debilitati ng hip pain Benign ess ential hypertension 0318434 I10 Blood pressure is 140/90. This is stable on lisinopril 20 mg daily. Vitamin D deficiency 347 40659 E55.9 Continue high-dose weekly supplement Long-term drug therapy 578917690 Z79.891 All baseline labs ordered Osteoporosis 59899873 M8 1.0 Patient is only on vitamin-D and calcium supplement Depressive disorder 3541 8387 F32.A Restart duloxetine 30 mg daily which worked well for her in the past Cholesterol screening 27 5894127 Z13.220 Fasting lipid panel ordered [id number] JOEL Xiao [facility] [employer] [address] [place] [address] 05/29/2024 09:09:21 05/29/2024 12:22:00 Staphylococcal infection of skin 472416265 B95.8 Start doxycyclin e 100 mg twice daily and Augmentin 875 twice daily complete broad-spec trum course. Patient has plans for upcoming surgical procedure and this needs to be aggressive ly treated Long-term drug therapy 281910245 Z79.891 Routine labs ordered Loss of hair 306366397 L 65.9 Patient reports that she is losing not only her hair but her eyebrows. We will do a full lab panel to re-evaluat e Infection of tooth 50943 8007 K04.7 Treatment as above broad-spec trum coverage including doxycyclin e and Augmentin Impaired f asting glycemia 444290119 R73.01 Fasting glucose was 108 on labs this fall. We will send for a formal A1c Benign ess ential hypertension 3484008 I10 on lisinopril 20 mg daily. BP is high today, and she did NOT dose her lisinopril this morning when it was due. she left house forgetting . [id number] JOEL Xiao [facility] [employer] [address] [place] [address] 06/30/2024 11:02:33 06/30/2024 14:37:54 Body mass index 20-24 - normal 589653301 Z68.22 BMI is 23.1 Staphyloco ccal infection of skin 494054188 B95.8 Start Bactrim ds twice daily for 10 days and mupirocin ointment to apply to the affected areas of the face 3 times daily. Infection of tooth 91372 8007 K04.7 dental caries are an issue. she hasn't seen the dentist yet. hoping to schedule soon. Loss of hair 368927948 L 65.9 still an issue. labs did not reveal a cause for loss of hair. Benign ess ential hypertension 2237540 I10 still elevated today. needs to dose Lisinopril . She has not taken it yet today Long-term drug therapy 799252701 Z79.891 Labs are currently up-to-date Headache 15590454 R51.9 Patient reports she is having a daily persistent moderate headache. We will order a CT of the head without contrast to evaluate especially in light of the staphyloco ccal type infection of the skin of the face. Health Concerns Section Related Observation LastModified by Organization Detai ls LastModified Time None Recorded Concern Status LastModified by Organization Details LastModified Time None Recorded Advance Directives Directive N: Payers Encounter Date Sequence Insurance Name Policy Number Policy Baron Covered Member ID Baron Member ID Guarantor Name 02/26/2024 1 [place] Megan Truong [id number] Megan Truong 05/29/2024 1 [place] Truong [id number] Megan Truong 06/30/2024 1 [place] Truong [id number] Megan Truong Notes Date Note Type Note Provider Name and Address Organization Details Recorded Time 4 text/htm l Anxiety/DepressionReported bypatient.Notes:Patient has underlying depression and would like to restart low-dose duloxetine that she has been on in the pastHypertensionReported bypatient.Notes:Patient is taking lisinopril 20 mg daily for blood pressure management Patient has a history of osteoporosis and is taking calcium and vitamin-D. Patient has advanced arthritis of her hip and does see a specialist. Patient is on chronic pain medication at this time Patient also has a tobacco smoking history and needs to quit this before she can get any type of surgery on her hip. JOEL Xiao Attn: Accounting[address] [place], [address], [place] [facility] 03/16/2024 13:15:52 5 text/htm l Skin LesionReported bypatient.Location:face; lip; cheek; chin Quality:tender; repeated infections Severity:mild Duration:weeks Timing:constant Context:no known trigger Alleviating Factors:none Associated Symptoms:no fever; no bruising; no chills; no night sweats Prior Treatments:noneNotes:Jaw soreness, states that her lips crack and it peels off does notice some bleeding;states that she has also noticed sores on her face, they do hurt to touch, face is swollen some. JOEL Xiao Attn: Accounting[address] [place], [address], [facility] 06/21/2024 16:22:21 5 text/htm l HeadacheReported bypatient.Location:orbital; bilateral; frontal; temporal Quality:not the worst headache ever;not similar to previous headaches;aching;pain;dull;c ontinuous Severity:moderate Duration:constant Onset/Timing:still present Context:not related to trauma Alleviating factors:nothing gives relief Associated Symptoms:no vomiting; no sensitivity to light; no confusion; no slurred speech; no double vision; no motor paralysis; no dizziness; no hoarseness; no sore throat; no hearing lossSkin LesionReported bypatient.Location:face; lip; cheek; chin Quality:tender; repeated infections Severity:mild Duration:weeks Timing:constant Context:no known trigger Alleviating Factors:none Associated Symptoms:no fever; no bruising; no chills; no night sweats Prior Treatments:noneNotes:Jaw soreness, states that her lips crack and it peels off does notice some bleeding;states that she has also noticed sores on her face, they do hurt to touch, face is swollen some. JOEL Xiao Attn: Accounting,[address] [facility], [place], [address], [facility] 07/19/2024 20:41:23 OBGyn Episode No OBEpisode recorded.
--- OUTSIDE RECORDS SUMMARY | 2024-08-03 07:31 | XMS_ITS | Clinical Summary ---
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 Role Phone Unavailable Primary Care Provider Unavailabl e Social History Tobacco Use Types Packs/Day Years Used Date Smoking Tobacco: Never Assessed Comments Unknown Sex and Gender Information Value Date Recorded Sex Assigned at Not on file Legal Sex Female 8:58 PM CDT Gender Identity Not on file Sexual Orientation Not on file Plan of Treatment Health Maintenance Due Date Last Done Comments Colorectal Cancer Screening Colonoscopy (10 Years) 1955 Hepatitis C 09/01/1971 DTaP, Tdap and Td Vaccines ( 1 - Tdap) 1972 Mammogram Screening 1993 Zoster Vaccines (1 of 2) 09/01/2003 Dexa Scan (General) 2018 Pneumococcal Vaccine: 65+ Ye ars (1 of 1 - PCV) 2018 COVID-19 Vaccine (2023-2 5 season) 2024 Influenza Adult (#1) 2024 RSV Immunization or 60+ Years (1 - 1-dose 75+ series) 2028 Meningococcal B Vaccine Aged Out No l onger eligible based on patient's age to complete this topic Meningococcal Vaccine Aged Out No mallory lakshmi eligible based on patient's age to complete this topic RSV Immunizations Under 20 Months Aged Out No longer eligible based on patient's age to complete this topic
--- OUTSIDE RECORDS SUMMARY | 2024-08-03 07:31 | XMS_ITS | Patient Health Summary ---
Author Organization [facility] Address [address] [facility] [place] [address] Care Team Providers Care Striper Machine Name Role Phone Rosalia Milian MD Primary Care Provider [phone] [facility],non-owned Affiliates and Associated Physician Practices is amultiple site organization consisting of ambulatory clinics and hospital sitesin [place], [place], [place] and [place]. This disclosure is being madepursuant to the Care Everywhere program and may not contain all information available regarding this patient. Last updated 18.[facility] Allergies No known active allergies Medications * Be aware that medications may not be up to date on this document. Alwaysverify current medications with the patient. * DULoxetine (Cymbalta) 30 MG capsule(Started 01/17/2024) Take 1 (one) capsule by mouth once daily Reasons: Major Depressive Disorder * mirtazapine (Remeron) 7.5 MG tablet(Started 01/17/2024) Take 1 (one) tablet by mouth at bedtime Social History Tobacco Use Types Packs/Day Years [...] Mass Index 20.8 01/17/2024 11:34 AM CDT Care Teams Striper Machine Relationship Specialty Start Date End Date Rosalia Milian MD [address] [place] [id number] PCP - General Family Medicine 01/17/24
--- OUTSIDE RECORDS SUMMARY | 2024-08-03 07:32 | XMS_ITS | Encounter Summary ---
Author Organization [facility] Healthcare Address [address] [place] [address] Care Team Providers Care Mechanical Supervisor Name Role Phone Angel Fernandez MD Primary Care Provider [phone] Rosalia Milian MD Primary Care Provider + Reason for Visit * Reason Onset Date Comments Med Refill 08/29/2021 Encounter Details Date Type Department Care Team (Late st Contact Info) Description 08/29/2021 Telephone [facility] [place] [facility] [address] [facility] [address] [place] [address] Wally Rodgers MD [address] [facility] [address] [facility] [phone] [place], [place] [id number] Med Refill Social History Tobacco Use Types Packs/Day Years Used Date Smoking Tobacco: Former Cigarettes Smokeless Tobacco: Never Alcohol Use Standard Drinks/Week Comments Never 0 (1 standard drink = 0.6 oz pur e alcohol) AUDIT-C Answer Date Recorded Q1: How often do you have a drink containing alc ohol? Never 06/02/2021 Average Number of Drinks Not on file 022 Frequency of Binge Drinking Not on file 11/2021 Comments No Sex and Gender Information Value Date Recorded Sex Assigned at Not on file Legal Sex Female 7:47 PM RECORD TESTER Gender Identity Not on file Sexual Orientation Not on file documented as of this encounter Plan of Treatment Not on file documented as of this encounter Goals Goal Patient Goal Type Associated Problems Recent Progress Patient-Stated? Author CCM Chronic Pain Care Plan Chronic Care Management No change(07/30 9:42 AM RECORD TESTER) No Keri krause, Eliza Castrejon RN [...] on filedocumented in this encounter Care Teams Mechanical Supervisor Relationship Specialty Start Date End Date Angel Fernandez MD [address] [place], [place] [id number] PCP - General 07/13/16 12/24/21 Rosalia Milian MD [address] [place] [address] PCP - General Family Medicine 12/25/21 documented as of this encounter
--- OUTSIDE RECORDS SUMMARY | 2024-08-03 07:32 | XMS_ITS | Encounter Summary ---
Author Organization [facility] Healthcare Address [address] [place] [address] Care Team Providers Care Tobacco Cutter Name Role Phone Rosalia Milian MD Primary Care Provider + Encounter Details Date Type Department Care Team (Late st Contact Info) Description 08/06/2022 Telephone [facility] the [place] [facility] [address] [facility] [address] [place] [address] Wally Rodgers MD [address] [facility] [address] [facility] [phone] [place], [place] [id number] Social History Tobacco Use Types Packs/Day Years Used Date Smoking Tobacco: Former Cigarettes 1 40 1 982 - 2021 Smokeless Tobacco: Never Alcohol Use Standard Drinks/Week Comments Never 0 (1 standard drink = 0.6 oz pur e alcohol) AUDIT-C Answer Date Recorded Q1: How often do you have a drink containing alcohol? Never 06/26/2022 Q2: How many drinks containi ng alcohol do you have on a typical day when you are drinking? 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 Author CCM Chronic Pain Care Plan Chronic Care Management No change(07/30 9:42 AM FRONT END MANAGER) No Eliza Billings RN Note: Problem: Chronic Pain Goals: 1. Minimize further functional decline 2. Maximize quality of life 3. Control pain Strategies: - Activity/exercise program recommendation - Conservative stepwise pain medicine strategy with multi-disciplinary approach - Recommend healthy lifestyle strategies and compensatory methods as needed documented as of this encounter Visit Diagnoses Not on filedocumented in this encounter Care Teams Tobacco Cutter Relationship Specialty Start Date End Date Rosalia Milian MD PCP - General Family Medicine 12/25/21 documented as of this encounter
== END 2024-08-03 07:24 | disposition home or self-care (01) ==
PROVIDERS: PCP Physician Assistant; Visit Provider Nurse Practitioner Family
DX: Z12.2 Encounter for screening for malignant neoplasm of respiratory organs (principal); R51.9 Headache, unspecified; Z87.891 Personal history of nicotine dependence
CPT/HCPCS: 70450; 71271

== ENCOUNTER 2025-04-06 18:46 | Emergency (ER) | payer MEDICARE, MEDICAID, SELFPAY ==
--- NOTE | ~2025-04-06 | XR_ITS ---
XR chest 2V HOSTORY: chest pain COMPARISON:[ None] FINDINGS: Frontal and lateral views of the chest were obtained. The lungs are clear. The heart size is normal in size. Pulmonary vasculature is unremarkable. Osseous structures are intact. IMPRESSION: No acute lung findings.] [ ] Reviewed, dictated and finalized at location S. TENANCE [facility]
--- OUTSIDE RECORDS SUMMARY | 2025-04-06 18:49 | XMS_ITS | Encounter Summary ---
Author Organization [facility] Healthcare Address [address] [place] [address] Care Team Providers Care Adoption Counselor Name Role Phone Rosalia Milian MD Primary Care Provider + Miscellaneous, Not In File Primary Care Provider Unavailable Encounter Details Date Type Department Care Team (Late st Contact Info) Description 05/04/2022 Telephone [facility] [place] [facility] [address] [facility] [address] [place] [address] Wally Rodgers MD [address] [facility] [address] [facility] [phone] [place], [place] [phone] Social History Tobacco Use Types Packs/Day Years [...] on file Legal Sex Female 7:47 PM FOUNDRY MELT SUPERVISOR Gender Identity Not on file Sexual Orientation Not on file documented as of this encounter Plan of Treatment Not on file documented as of this encounter Goals Goal Patient Goal Type Associated Problems Recent Progress Patient-Stated? Author CCM Chronic Pain Care Plan Chronic Care Management No change(07/30 9:42 AM FOUNDRY MELT SUPERVISOR) No Keri krause, Eliza Castrejon, SHOBHA Note: Problem: Chronic Pain Goals: 1. Minimize further functional decline 2. Maximize quality of life 3. Control pain Strategies: - Activity/exercise program recommendation - Conservative stepwise pain medicine strategy with multi-disciplinary approach - Recommend healthy lifestyle strategies and compensatory methods as needed documented as of this encounter Visit Diagnoses Not on filedocumented in this encounter Care Teams Adoption Counselor Relationship Specialty Start Date End Date Rosalia Milian MD PCP - General Family Medicine 12/25/21 04/04/25 Miscellaneous, Not In File PCP - General 04/05/25 documented as of this encounter
--- OUTSIDE RECORDS SUMMARY | 2025-04-06 18:49 | XMS_ITS | Encounter Summary ---
Author Organization [facility] Healthcare Address [address] [place] [address] Care Team Providers Care Landman Name Role Phone Angel Fernandez MD Primary Care Provider [phone] Rosalia Milian MD Primary Care Provider + Miscellaneous, Not In File Primary Care Provider Unavailable Encounter Details Date Type Department Care Team (Late st Contact Info) Description 05/18/2020 Telephone [facility] [place] [facility] [address] [facility] Advanced Medicine [address] [place] [address] Wally Rodgers MD [address] [facility] [address] [facility] [phone] [place], [place] [phone] Social History Tobacco Use Types Packs/Day Years [...] on file Legal Sex Female 7:47 PM GREEN BUILDING MATERIALS DESIGNER Gender Identity Not on file Sexual Orientation Not on file documented as of this encounter Plan of Treatment Not on file documented as of this encounter Goals Goal Patient Goal Type Associated Problems Recent Progress Patient-Stated? Author CCM Chronic Pain Care Plan Chronic Care Management No change(07/30 9:42 AM GREEN BUILDING MATERIALS DESIGNER) No Eliza Billings Ann, SHOBHA Note: Problem: Chronic Pain Goals: 1. Minimize further functional decline 2. Maximize quality of life 3. Control pain Strategies: - Activity/exercise program recommendation - Conservative stepwise pain medicine strategy with multi-disciplinary approach - Recommend healthy lifestyle strategies and compensatory methods as needed documented as of this encounter Visit Diagnoses Not on filedocumented in this encounter Care Teams Landman Relationship Specialty Start Date End Date Angel Fernandez MD [address] [place] [address] PCP - General 07/13/16 12/24/21 Rosalia Milian MD [address] [place] [address] PCP - General Family Medicine 12/25/21 04/04/25 Miscellaneous, Not In File PCP - General 04/05/25 documented as of this encounter
--- OUTSIDE RECORDS SUMMARY | 2025-04-06 18:49 | XMS_ITS | Encounter Summary ---
Author Organization [facility] Healthcare Address [address] [place] [address] Care Team Providers Care Toddler Lead Teacher Name Role Phone Rosalia Milian MD Primary Care Provider + Miscellaneous, Not In File Primary Care Provider Unavailable Encounter Details Date Type Department Care Team (Late st Contact Info) Description 08/06/[address] 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 Author CCM Chronic Pain Care Plan Chronic Care Management No change(07/30 9:42 AM SUPERVISOR CLEANING AND ANNEALING) No Keri krause, Eliza Castrejon, SHOBHA Note: Problem: Chronic Pain Goals: 1. Minimize further functional decline 2. Maximize quality of life 3. Control pain Strategies: - Activity/exercise program recommendation - Conservative stepwise pain medicine strategy with multi-disciplinary approach - Recommend healthy lifestyle strategies and compensatory methods as needed documented as of this encounter Visit Diagnoses Not on filedocumented in this encounter Care Teams Toddler Lead Teacher Relationship Specialty Start Date End Date Rosalia Milian MD PCP - General Family Medicine 12/25/21 04/04/25 Miscellaneous, Not In File PCP - General 04/05/25 documented as of this encounter
--- OUTSIDE RECORDS SUMMARY | 2025-04-06 18:49 | XMS_ITS | Data Portability ---
Author Organization [facility] CRISP[facility]lvia Peacock Address [address] [facility] [place] [address] Care Team Providers Care Target Network Analyst Name Role Phone ANGLESLIESTUARTIE Primary Care Provider Unavailab le Assessment No assessment recorded. Plan of Treatment Reminders Order Date Submit Date Provider Last Modified By Organization Details Last Modified Time Details Appointments None recorded. Lab HbA1c (hemoglobi n A1c), blood 2024 025 [facility], [address], [place], [address], 5 13:50:31 TSH + free T4, serum [address] [facility], [address], [place], [address], 5 13:46:04 vitamin B12 + folate, serum or blood [address] [facility], [address], [place], [address], 5 13:54:10 iron + TIBC + ferritin, serum [address] [facility], [address], [place], [address], 5 13:46:15 CBC w/ auto diff 2024 025 [facility] [employer], [address], [place], [address], 5 13:50:42 hepatic function panel, serum 2024 [facility], [address], [place], [address], 5 13:54:17 BMP, serum or plasma 2024 025 [facility], [address], [place], [address], 5 13:46:20 magnesium, serum or plasma 2024 025 [facility], [address], [place], [address], 5 13:54:40 lipid panel, serum [address] [facility], [address], [place], [address], 12:13:52 hepatic function panel, serum [address] [facility], [address], [place], [address], 12:13:05 CBC w/ auto diff [address] [facility], [address], [place], [address], 4 12:13:21 BMP, serum or plasma [address] [facility], [address], [place], [address], 4 12:13:35 TSH + free T4, serum 2023 024 [facility], [address], [place], [address], 4 12:14:00 Referral dermatolog ist referral 2024 025 [email or web address] Allegra Reed MD (Dermatology) , [address] [facility] [address], [address], [place], [address], 5 15:24:32 Procedures None recorded. Surgeries None recorded. Imaging CT, temporal bone, w/o contrast [address] (Imaging), [address] [place] [address], [address], 5 15:24:03 CT, head, w/o contrast [address] (Imaging), [address] [place] [address], [address], 5 12:31:07 Medication Orders lisinopril 30 mg tablet 2024 025 [facility] [place], [address], 5 12:53:31 mupirocin 2 % topical ointment 2024 025 [facility], [address] [place], [address], 5 12:56:32 Bactrim DS 800 mg-160 mg tablet 2024 025 [facility], [address] [place], [address], 5 12:56:22 doxycyclin e hyclate 100 mg capsule [address] [facility] [address] [place], [address], 5 14:10:26 Augmentin 875 mg-125 mg tablet 2024 025 [email or web address], [address] [place], [address], 5 12:19:59 duloxetine 30 mg capsule,de layed release 2023 024 [facility] [address] [place], [address], 4 16:07:25 Patient TargetsNo targets recorded. Patient InstructionsNo instructions recorded. 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 [email or web address] [facility] [address], [place], [address], 08/19/2024 12:38:04 Result Notes None recorded. Problems Name Problem SNOMED Code Status Onset Date Resolution Date Notes Provider Name and Address Organization Details Recorded Time Body mass index 20-24 - normal 391799466 Active 2023 Jina Dennis MA null, [place] [facility] 4 15:54:05 Osteoporosi s 11932596 Active 2023 JOEL Xiao Attn: Accountin g,[address] [facility], [place], [address], [place] [facility] 4 16:06:06 Vitamin D deficiency 01353778 Active 2023 JOEL Xiao Attn: Accountin g,[address] [facility], [place], [address], [place] [facility] 4 16:06:07 Benign essential hypertensio n 6576444 Active 2023 JOEL Xiao Attn: Yojana duarte,[address] [place], [address], [place] [facility] 4 16:06:08 Osteoarthri tis of hip 405556038 Active 2023 JOEL Xiao Attn: Yojana duarte,[address] [place], [address], [place] [facility] 4 16:06:09 Depressive disorder 72438047 Active 2023 JOEL Xiao Attn: Yojana duarte,[address] [place], [address], [place] [facility] 4 16:06:39 Long-term drug therapy Active 2023 JOEL Xiao Attn: Yojana duarte,[address] [place], [address], [place] [facility] 4 13:15:18 Impaired fasting glycemia 055999083 Active 2024 JOEL Xiao Attn: Yojana duarte,[address] [place], [address], [place] [facility] 5 09:42:35 Loss of hair 881044424 Active 2024 JOEL Xiao Attn: Yojana duarte,[address] [place], [address], [place] [facility] 5 09:42:49 Infection of tooth 313017062 Active 2024 JOEL Xiao Attn: Yojana duarte,[address] [place], [address], [place] [facility] 5 09:42:51 Headache 96661725 Active 2024 JOEL Xiao Attn: Yojana duarte,[address] [place], [address], [place] [facility] 5 20:39:30 Staphylococ taran infection of skin 328393450 Active 2024 JOEL Xiao Attn: Yojana duarte,[address] [facility], [place], [address], [facility] - [facility] 5 20:39:33 Positive screening for depression on PHQ-9 (Patient Health Questionnai re 9) 0413649750481 00 Active 2024 JOEL Xiao Attn: Yojana duarte,[address] [facility], [place], [address], [facility] - SI 5 18:41:49 Problem Notes None recorded. Procedures Surgical History Date Name Laterality Status Provider Name and Address Organization Details Recorded Time hysterectomy completed Jina Dennis MA [facility] 02/26/2024 15:52:20 operation on hip joint completed Jina Dennis MA [facility] 02/26/2024 15:52:44 Back Surgery completed Jina Dennis MA [facility] 02/26/2024 15:52:57 procedure on neck completed Jina Dennis MA [facility] 02/26/2024 15:53:09 Imaging Results None recorded. Procedure Notes None recorded. Medical Equipment None Reported. Allergies Allergen ID Allergen Name Allergen Category Reaction Reaction Severity Criticality Documentation Date Start Date Code Code System Note Provider Name and Address Organization Details Recorded Time 362108 clindamyc in Not available Not available Not available Not available 02/26/2024 2582 RxNorm Jina Dennis MA null, [place] - [facility] 4 16:00:20 754592 ibuprofen medicatio n Not available Not available low 03/17/20252022 5640 RxNorm unrec ogniz ed react ion (text : Nause a & Vomit ing, code: 22491 000) (from [facility]) Not Available kimi - External Data Service - prod 5 12:24:06 Medications Name Sig Start Date Stop Date Status Note LastModified by Organization Details LastModified Time nystatin 100,000 unit/mL oral suspension 5 ML 4 TIMES DAILY DIRECTED active Not Available Not Available No t Available doxycycline hyclate 100 mg capsule TAKE 1 CAPSULE BY MOUTH TWICE DAILY WITH MEALS 01/06 completed Not Available Not Available Not Available [...] 1 tablet every day by oral route. 08/19 completed Not Available Not Available Not Available sulfamethox azole 800 mg-trimetho prim 160 mg tablet TAKE 1 TABLET BY MOUTH EVERY 12 HOURS WITH MEALS 08/19 completed Not Available Not Available Not Available oxycodone 15 mg tablet Take 1 tablet every 6 hours by oral route. active Not Available Not Available No t Available benzonatate 100 mg capsule TAKE 1 CAPSULE BY MOUTH THREE TIMES DAILY NEEDED FOR COUGH 02/25 completed Not Available Not Available Not Available lisinopril 30 mg tablet Take 1 tablet every day by oral route. 2024 active Not Available Not Available Not Avai lable morphine ER 15 mg tablet,exte nded release Take 2 tablets every 12 hours by oral route. active Not Available Not Available No t Available mupirocin 2 % topical ointment APPLY A SMALL AMOUNT TO THE AFFECTED AREA OF FACE THREE TIMES DAILY 08/19 completed Not Available Not Available Not Available ergocalcife rol (vitamin D2) 1,250 mcg [...] BY MOUTH EVERY 12 HOURS WITH MEALS 08/19 completed Not Available Not Available Not Available duloxetine 30 mg capsule,del ayed release [...] Not Available Not Available Vitals Date Recorded Systolic And Diastolic Provider Name and Address Organization Details Last Updated DateTime 05/29/2024 160/80 mm[Hg] JOEL Xiao Attn: Accounting,[address] [place], [address], [facility] 05/29/2024 09:36:06 Date Recorded Body height Body mass index (BMI) Body weight Oxygen saturation Oxygen saturation in Arterial blood by Pulse oximetry Heart rate Respiratory rate Systolic And Diastolic Provider Name and Address Organization Details Last Updated DateTime 160.02 cm 23.7 kg/m2 55840.3 8 g 95 % 95 % 82 /min 20 /min 150/82 mm[Hg] Jina Dennis MA [facility] 5 09:21:32 Date Recorded Body height Body mass index (BMI) Body weight Respiratory rate Oxygen saturation Oxygen saturation in Arterial blood by Pulse oximetry Heart rate Systolic And Diastolic Provider Name and Address Organization Details Last Updated DateTime 5 160.02 cm 23.6 kg/m2 89488.7 9 g 20 /min 95 % 95 % 70 /min 146/82 mm[Hg] Jina Dennis MA [facility] 5 11:31:09 Date Recorded Systolic And Diastolic Provider Name and Address Organization Details Last Updated DateTime 08/19/2024 150/80 mm[Hg] JOEL Xiao Attn: Accounting,[address] [place], [address], [facility] 08/19/2024 12:51:58 Date Recorded Body height Body mass index (BMI) Body weight Respiratory rate Heart rate Oxygen saturation Oxygen saturation in Arterial blood by Pulse oximetry Systolic And Diastolic Provider Name and Address Organization Details Last Updated DateTime 5 160.02 cm 23 kg/m2 48392.0 1 g 20 /min 70 /min 90 % 90 % 146/88 mm[Hg] Jina Dennis MA [facility] 5 12:22:09 Date Recorded Systolic And Diastolic Provider Name and Address Organization Details Last Updated DateTime 02/26/2024 140/90 mm[Hg] JOEL Xiao Attn: Accounting,[address] [facility], [place], [address], [facility] 02/26/2024 16:13:17 Date Recorded Body height Respiratory rate Body mass index (BMI) Body weight Oxygen saturation Oxygen saturation in Arterial blood by Pulse oximetry Heart rate Systolic And Diastolic Provider Name and Address Organization Details Last Updated DateTime 160.02 cm 20 /min 22.1 kg/m2 09004.0 5 g 96 % 96 % 85 /min 118/88 mm[Hg] Jina Dennis MA [facility] 4 15:56:12 Social History Question Answer Notes LastModified by Organizat ion Details LastModified Time Tobacco Smoking Status Current Every Day Smoker Jina Dennis MA null, [facility] 02/26/2024 15:51:54 Do You Have An Advance Directive? No Information not available 02/26/2024 Are You Blind [...] Date Of Your Most Recent Tobacco Screening? 08/19/2024 Information not available 08/19/2024 What Is Your Current Pack Years? 30ormorepacky [...] Information not available 06/30/2024 Do You Use Sunscreen Routinely? No Information not available 02/26/2024 Has Tobacco Cessation Counseling Been Provided? No Information not available 02/26/2024 How Many Years Have You Smoked Tobacco? 30 Information not available 02/26/2024 Sex: Female Functional Status Question Answer Note LastModified by Organizat ion Details LastModified Time Do you use any illicit or recreational drugs? No Information not available 02/26/2024 Do you or have you ever used any other forms of tobacco or nicotine? No Information not available 02/26/2024 What is your level of alcohol consumption? None Information not available 02/26/2024 Are you able to care for yourself independently? Yes Information not available 02/26/2024 What is your exercise level? [...] Response Coronary Artery Disease N Other N Atrial Fibrillation N High Blood Pressure N Thyroid Problems N Kidney or Bladder Problems N Depression N COPD N Blood Clots N GI Problems N Have you had a mammogram in the last yea r? N Skin Problems N Anemia N Heart Attack (SD) N Diabetes N Anxiety Disorder N Muscle, Joint, or Bone Problems N Seizures/Epilepsy N Have you had a colonoscopy in the last 1 0 years? N Acid Reflux (GERD) N Cancer N Stroke N Allergies N Asthma N Have you had a PSA blood test in the las t year? N High Cholesterol N Hepatitis N Liver Disease N Headaches N Osteoporosis N Heart Failure N Gynecological History Statement/Question Response Menses Monthly [...] or 50 mcg/0.25mL dose 07/27/2020 completed SHANNEN [place], [place] - [facility] 03/18/2024 [...] Diagnosis SNOMED-CT Code Diagnosis ICD10 Code Diagnosis IMO Codes Diagnosis Note [id number] Colby Combs MD [facility] [place] [facility] [address] [place] [address] 02/26/2024 15:00:43 03/05/2024 11:54:50 Body mass index 20-24 - normal 464192619 Z68.22 BMI is 22.1 Osteoarthritis of hip 23 3951865 M16.9 Patient has plans for upcoming hip surgery once she gets off of nicotine. She is taking chronic pain medication s at this time for debilitati ng hip pain Benign ess ential hypertension 5207899 I10 Blood pressure is 140/90. This is stable on lisinopril 20 mg daily. Vitamin D deficiency 347 24361 E55.9 Continue high-dose weekly supplement Long-term drug therapy 181358203 Z79.891 All baseline labs ordered Osteoporosis 27393852 M8 1.0 Patient is only on vitamin-D and calcium supplement Depressive disorder 3548 9007 F32.A Restart duloxetine 30 mg daily which worked well for her in the past Cholesterol screening 27 8271628 Z13.220 Fasting lipid panel ordered [id number] Colby Combs MD [facility] [employer] [address] [place] [address] 05/29/2024 09:09:21 05/29/2024 12:22:00 Staphylococcal infection of skin 791522711 B95.8 Start doxycyclin e 100 mg twice daily and Augmentin 875 twice daily complete broad-spec trum course. Patient has plans for upcoming surgical procedure and this needs to be aggressive ly treated Long-term drug therapy 015195437 Z79.891 Routine labs ordered Loss of hair 969904441 L 65.9 Patient reports that she is losing not only her hair but her eyebrows. We will do a full lab panel to re-evaluat e Infection of tooth 66626 8007 K04.7 Treatment as above broad-spec trum coverage including doxycyclin e and Augmentin Impaired f asting glycemia 203006863 R73.01 Fasting glucose was 108 on labs this fall. We will send for a formal A1c Benign ess ential hypertension 4984896 I10 on lisinopril 20 mg daily. BP is high today, and she did NOT dose her lisinopril this morning when it was due. she left house forgetting . [id number] Colby Combs MD [facility] [employer] [address] [place] [address] 06/30/2024 11:02:33 06/30/2024 14:37:54 Body mass index 20-24 - normal 455013328 Z68.22 BMI is 23.1 Staphyloco ccal infection of skin 291516209 B95.8 Start Bactrim ds twice daily for 10 days and mupirocin ointment to apply to the affected areas of the face 3 times daily. Infection of tooth 77015 8007 K04.7 dental caries are an issue. she hasn't seen the dentist yet. hoping to schedule soon. Loss of hair 508568763 L 65.9 still an issue. labs did not reveal a cause for loss of hair. Benign ess ential hypertension 7352523 I10 still elevated today. needs to dose Lisinopril . She has not taken it yet today Long-term drug therapy 254130765 Z79.891 Labs are currently up-to-date Headache 37948409 R51.9 Patient reports she is having a daily persistent moderate headache. We will order a CT of the head without contrast to evaluate especially in light of the staphyloco ccal type infection of the skin of the face. [id number] Colby Combs MD [facility] [place] [address] [place] [address] 08/19/2024 11:48:20 08/19/2024 12:56:13 Body mass index 20-24 - normal 049300078 Z68.22 BMI is 23 Atypical facial pain [address] of the temporal bone without contrast for temporal wasting and pain in the temporal region Muscle atrophy 50848393 M62.50 As above Change in skin lesion 39 8243747 L98.9 Refer to dermatolog y for evaluation in skin lesions overall skin check Benign ess ential hypertension 5019132 I10 still elevated today. 150/80, boost to lisinopril 30mg daily. Positive s creening for depression on PHQ-9 (Patient Health Questionnaire 9) 4090647039 77714 Z13.31 Patient is stable on duloxetine 90 mg daily Health Concerns Section Related Observation LastModified by Organization Detai ls LastModified Time None Recorded Concern Status LastModified by Organization Details LastModified Time None Recorded Advance Directives Directive N: Payers Insurance Date Sequence Insurance Name Policy Number Policy Baron Covered Member ID Baron Member ID Guarantor Name 03/17/2025 [place] [facility] Megan Truong [id number] Megan Truong 03/17/2025 1 [place] Megan Truong [id number] Megan Truong Notes Date Note Type Note Provider Name and Address Organization Details Recorded Time 4 text/htm l HypertensionReported by PatientPatient is taking lisinopril 20 mg daily for blood pressure management Anxiety/DepressionReported by PatientPatient has underlying depression and would like to restart low-dose duloxetine that she has been on in the past Patient has a history of osteoporosis and is taking calcium and vitamin-D. Patient has advanced arthritis of her hip and does see a specialist. Patient is on chronic pain medication at this time Patient also has a tobacco smoking history and needs to quit this before she can get any type of surgery on her hip. JOEL Xiao Attn: Accounting,[address] [facility], [place], [address], [facility] 03/16/2024 13:15:52 5 text/htm l Skin LesionReported by PatientHPIFor location, patient reportsface,lip,cheek, andchin. For quality, patient reportstenderandrepeated infections. For severity, patient reportsmild. For duration, patient reports___ weeks. For timing, patient reportsconstant. For context, patient reportsno known trigger. For alleviating factors, patient reportsnone. For associated symptoms, patient reportsno fever,no bruising,no chills, andno night sweats. For prior treatments, patient reportsnone.Jaw soreness, states that her lips crack and it peels off does notice some bleeding;states that she has also noticed sores on her face, they do hurt to touch, face is swollen some. JOEL Xiao Attn: Accounting,[address] [facility], [place], [address], [facility] 06/21/2024 16:22:21 5 text/htm l Skin LesionReported by PatientHPIFor location, patient reportsface,lip,cheek, andchin. For quality, patient reportstenderandrepeated infections. For severity, patient reportsmild. For duration, patient reports___ weeks. For timing, patient reportsconstant. For context, patient reportsno known trigger. For alleviating factors, patient reportsnone. For associated symptoms, patient reportsno fever,no bruising,no chills, andno night sweats. For prior treatments, patient reportsnone.Jaw soreness, states that her lips crack and it peels off does notice some bleeding;states that she has also noticed sores on her face, they do hurt to touch, face is swollen some. HeadacheReported by PatientHPIFor quality, patient reportsnot similar to previous headaches,aching,pain,dull, andcontinuousbut reportsnot the worst headache ever. For location, patient reportsorbital,bilateral,fro ntal, andtemporal. For severity, patient reportsmoderate. For duration, patient reportsconstant. For onset/timing, patient reportsstill present. For context, patient reportsnot related to trauma. For alleviating factors, patient reportsnothing gives relief. For associated symptoms, patient reportsno vomiting,no sensitivity to light,no confusion,no slurred speech,no double vision,no motor paralysis,no dizziness,no hoarseness,no sore throat, andno hearing loss. JOEL Xiao Attn: Accounting,[address] [place], [address], [place] [facility] 07/19/2024 20:41:23 5 text/htm l HypertensionReported by PatientPatient is on lisinopril 20 mg daily for blood pressure management Skin LesionReported by PatientHPIFor location, patient reportsface,lip,cheek, andchin. For quality, patient reportstenderandrepeated infections. For severity, patient reportsmild. For duration, patient reports___ weeks. For timing, patient reportsconstant. For context, patient reportsno known trigger. For alleviating factors, patient reportsnone. For associated symptoms, patient reportsno fever,no bruising,no chills, andno night sweats. For prior treatments, patient reportsnone.Jaw soreness, states that her lips crack and it peels off does notice some bleeding;states that she has also noticed sores on her face, they do hurt to touch, face is swollen some. HeadacheReported by PatientHPIFor quality, patient reportsnot similar to previous headaches,aching,pain,dull, andcontinuousbut reportsnot the worst headache ever. For location, patient reportsorbital,bilateral,fro ntal, andtemporal. For severity, patient reportsmoderate. For duration, patient reportsconstant. For onset/timing, patient reportsstill present. For context, patient reportsnot related to trauma. For alleviating factors, patient reportsnothing gives relief. For associated symptoms, patient reportsno vomiting,no sensitivity to light,no confusion,no slurred speech,no double vision,no motor paralysis,no dizziness,no hoarseness,no sore throat, andno hearing loss. HPI is the same as her last appointment JOEL Xiao Attn: Accounting,[address] [place], [address], [facility] 08/30/2024 18:43:34 OBGyn Episode No OBEpisode recorded.
--- OUTSIDE RECORDS SUMMARY | 2025-04-06 18:49 | XMS_ITS | Encounter Summary ---
Author Organization [facility] Healthcare Address [address] [place] [address] Care Team Providers Care Store Host Name Role Phone Angel Fernandez MD Primary Care Provider Rosalia Milian MD Primary Care Provider + Miscellaneous, Not In File Primary Care Provider Unavailable Reason for Visit * Reason Onset Date Comments Med Refill 08/29/2021 Encounter Details Date Type Department Care Team (Late st Contact Info) Description 08/29/2021 Telephone [facility] [place] [facility] [address] [facility] [address] [place] [address] Wally Rodgers MD [address] [facility] [address] [facility] [place] [phone] [place], [place] [id number] Med Refill Social History Tobacco Use Types [...] on file 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 Author CCM Chronic Pain Care Plan Chronic Care Management No change(07/30 9:42 AM COMMUTATOR OPERATOR) No Keri krause, Eliza Castrejon, SHOBHA Note: Problem: Chronic Pain Goals: 1. Minimize further functional decline 2. Maximize quality of life 3. Control pain Strategies: - Activity/exercise program recommendation - Conservative stepwise pain medicine strategy with multi-disciplinary approach - Recommend healthy lifestyle strategies and compensatory methods as needed documented as of this encounter Visit Diagnoses Not on filedocumented in this encounter Care Teams Store Host Relationship Specialty Start Date End Date Angel Fernandez MD [address] [place] [address] PCP - General 07/13/16 12/24/21 Rosalia Milian MD [address] [place], [place] [id number] PCP - General Family Medicine 12/25/21 04/04/25 Miscellaneous, Not In File PCP - General 04/05/25 documented as of this encounter
--- OUTSIDE RECORDS SUMMARY | 2025-04-06 18:49 | XMS_ITS | Clinical Summary ---
Author Organization [facility] Address [address] [place] [id number] Care Team Providers Care Mortgage Assistant Name Role Phone Unavailable Primary Care Provider [...] 1 - Tdap) 1972 Mammogram Screening 1993 Pneumococcal Vaccine: 50+ Ye ars (1 of 1 - PCV) 09/01/2003 Zoster Vaccines (1 of 2) 09/01/2003 Dexa Scan (General) 2018 COVID-19 Vaccine ( - 2024-2 6 season) 2025 Influenza Adult (#1) 2025 RSV Immunization or 60+ Years (1 - 1-dose 75+ series) 2028 Hepatitis A Vaccines Aged Out No long er eligible based on patient's age to complete this topic Meningococcal B Vaccine Aged Out No l onger eligible based on patient's age to complete this topic Meningococcal Vaccine Aged Out No mallory lakshmi eligible based on patient's age to complete this topic RSV Immunizations Under 20 Months Aged Out No longer eligible based on patient's age to complete this topic
--- OUTSIDE RECORDS SUMMARY | 2025-04-06 18:49 | XMS_ITS | Encounter Summary ---
Author Organization [facility] Healthcare Address [address] [place] [address] Care Team Providers Care Fruit And Vegetable Factory Worker Name Role Phone Rosalia Milian MD Primary Care Provider + Miscellaneous, Not In File Primary Care Provider Unavailable Reason for Visit * Reason Onset Date Comments carmen Armando 03/03/2024 Encounter Details Date Type Department Care Team (Late st Contact Info) Description 03/03/2024 Telephone [facility] [place] [facility] [address] [facility] [address] [place] [address] Wally Rodgers MD [address] [facility] [address] [facility] [place] [phone] [place], [place] [id number] carmen Armando Social History Tobacco Use Types [...] on file 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 Author CCM Chronic Pain Care Plan Chronic Care Management No change(07/30 9:42 AM LIVESTOCK SALES REPRESENTATIVE) No Keri krause, Eliza Castrejon RN Note: Problem: Chronic Pain Goals: 1. Minimize further functional decline 2. Maximize quality of life 3. Control pain Strategies: - Activity/exercise program recommendation - Conservative stepwise pain medicine strategy with multi-disciplinary approach - Recommend healthy lifestyle strategies and compensatory methods as needed documented as of this encounter Visit Diagnoses Not on filedocumented in this encounter Care Teams Fruit And Vegetable Factory Worker Relationship Specialty Start Date End Date Rosalia Milian MD PCP - General Family Medicine 12/25/21 04/04/25 Miscellaneous, Not In File PCP - General 04/05/25 documented as of this encounter
--- OUTSIDE RECORDS SUMMARY | 2025-04-06 18:49 | XMS_ITS | Clinical Summary ---
Author Organization [facility] Address [address] [place] [address] Care Team Providers Care Cupola Tender Name Role Phone Miscellaneous, Not In File Primary Care Provider Unavailable Allergies Active Allergy Reactions Criticality Noted Date Comments Clindamycin Hives,Other (See comments) Medium 08/03/19 20 Rash, peeling skin Ibuprofen Nausea & Vomiting Low 04/30/2023 Medications multivitamin tabletIndications:V itamin Deficiency Prevention daily. Active naloxone (NARCAN) 4 mg/actuation spray,non-aerosol Administer [...] a week 12 capsule 07/24/[address] (CYMBALTA) 60 mg capsuleIndications: Anxiety with Depression,Chronic Musculoskeletal Pain,Neuropathic Pain Take 1 capsule (60 mg total) by mouth daily 90 capsule 3 05/08/20 24 Active lisinopriL (PRINIVIL,ZESTRIL) 20 mg tablet Take 1 tablet every day by oral route. Active mupirocin (BACTROBAN) 2 % ointment APPLY A SMALL AMOUNT TO THE AFFECTED AREA OF FACE THREE TIMES DAILY 06/30/19 Active calcium carbonate (OS-WOLFGANG) 1,250 mg (500 mg elemental) tablet daily 09/08/19 Active nystatin 100,000 unit/mL suspension Take 5 mL 4 times a day by oral route as directed. 01/07/20 Active oxyCODONE (ROXICODONE) 15 mg immediate release tabletIndications:s evere chronic pain requiring long-term opioid treatment Take 0.5-1 tablets (7.5-15 mg total) by mouth every 4 (four) hours as needed for pain (MAXIMUM: 4 tabs/day) 120 tablet 03/18/20 25 Active morphine ER (MS CONTIN) 30 mg 12 hr tabletIndications:s evere chronic pain requiring long-term opioid treatment Take 1-2 tablets (30-60 mg total) by mouth 2 (two) times a day - maximum 4 tablets per day 120 tablet 04/02/20 25 Active oxyCODONE (ROXICODONE) 15 mg immediate release tabletIndications:s evere chronic pain requiring long-term opioid treatment Take 0.5-1 tablets (7.5-15 mg total) by mouth every 4 (four) hours as needed for pain (MAXIMUM: 4 tabs/day) 120 tablet 02/17/20 25 025 Discontin ued(Reord er) morphine ER (MS CONTIN) 30 mg 12 hr tabletIndications:s evere chronic pain requiring long-term opioid treatment Take 1-2 tablets (30-60 mg total) by mouth 2 (two) times a day - maximum 4 tablets per day 120 tablet 03/03/20 25 025 Discontin ued(Reord er) Active Problems Problem Noted Date Diagnosed Date Abdominal distention 01/14/2025 Acute respiratory failure 01/14/2025 Constipation 01/14/2025 Costochondritis 01/14/2025 Dislocation of finger, interphalangeal joint, le ft, open 01/14/2025 Effusion of hip joint, left 01/14/2025 Emphysema lung 01/14/2025 Fever 01/14/2025 Hemoptysis 01/14/2025 Impetigo 01/14/2025 Major depressive disorder, recurrent, unspecifie d 01/14/2025 Nicotine dependence, cigarettes, uncomplicated 0 01/14/2025 Oxygen dependent 01/14/2025 Paraspinal muscle spasm 01/14/2025 Pneumonia 01/14/2025 Fracture of right pubis 01/14/2025 Sacral fracture 01/14/2025 Sprain of foot, left 01/14/2025 Stomatitis 01/14/2025 Financial insecurity due to medical expenses Headache 07/18/2024 Staphylococcal infection of skin 07/18/2024 Impaired fasting glucose 05/28/2024 Infection of tooth 05/28/2024 Loss of hair 05/28/2024 Essential (primary) hypertension 02/26/2024 Vitamin D deficiency 02/26/2024 Depressive disorder 02/26/2024 Osteoarthritis, hip, bilateral 02/26/2024 Diagnosis unknown 07/02/2021 Shoulder pain 04/04/2021 Compression fracture of T12 vertebra 07/04/2019 Compression fracture of L1 lumbar vertebra 07/04 H/O fracture of femur 08/24/2018 Overview (01/08/2019): Right - [facility] Osteoarthritis of acromioclavicular joint 2015 Rotator cuff syndrome 04/10/2016 Primary osteoarthritis of left hip 03/11/2016 Chronic use of opiate drug for therapeutic purpo se 03/05/2016 Overview (10/14/2024): Chronic Opioid Therapy - 10/14/24 Prior Analgesics: - morphine ER 60 mg TID + oxycodone 15-30 mg p.r.n. (MME 180 + 225 = 405 mg/day) 07/05/22 reset refill date left rx in [place] 07/26/22 - Out of med early; she is certain that meds stored securely and no one else has access; she may have taken extra doses - reset refill dates 01/23/24 medications lost in the mail during travel to [place] - reset refill dates Current analgesics decreased [...] opioid dosing for now Urine drug screen [facility] 03/05/16 - consistent with prescribed morphine, oxycodone Urine drug screen [facility] 06/26/16 - consistent with prescribed morphine, oxycodone Urine drug screen [facility] 04/26/2017-consistent w/ prescribed morphine, oxycodone Urine drug screen [facility] 04/24/18 - consistent with prescribed morphine , oxycodone 07/15/18 - loss/ theft pain medication while in [place] - reset refill dates Urine drug screen [facility] 03/12/19 - consistent with prescribed morphine , oxycodone Urine drug screen [facility] 11/25/19 - consistent with prescribed analgesics Urine drug screen [facility] 04/16/21 - consistent with prescribed analgesics Urine drug screen [facility] 09/24/22 - consistent with prescribed morphine, oxycodone Urine drug screen [facility] 08/08/23 - consistent with prescribed morphine, oxycodone Idiopathic peripheral autonomic neuropathy 03/13 Arthralgia of multiple joints 12/20/2013 Cervical post-laminectomy syndrome 09/30/2012 Other chronic pain 09/30/2012 Anaclitic depression 09/30/2012 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 [address] [facility] [address] [place] [address] Analilia Trinidad, KRYSTINA Idiopathic peripheral autonomic neuropathy (Primary Dx); Primary osteoarthritis of both hips; Financial insecurity due to medical expenses Discharge Disposition: Discharge to home or self care from Last 3 Months Immunizations Immunization Administration Dates Next Due COVID-19 MRNA (MODERNA) .5 M L (50 MCG) VACCINE (12 YEARS AND UP) 08/25/2020,07/27/2020 Influenza, Quadrivalent, Hig h Dose, Preservative Free, Intrr 05/11/2021 Influenza, Trivalent, IM (MDV) 02/28/2010,2004 Influenza, Unspecified 05/11/2021 Moderna SARS-CoV-2 Monovalent Vaccination (12+ Y RS) 07/27/2020 Td, Not Adsorbed 10/06/1997 Surgical History Surgery Date Site/Laterality Comments NECK SURGERY Neck Surgery - x 7 (Added by TW Conv) [place] TOTAL ABDOMINAL HYSTERECT W/WO RMVL TUBE OVARY [...] drink = 0.6 oz pur e alcohol) Hunger Vital Sign Answer Date Recorded Within the past 12 months, y ou worried that your food would run out before you got the money to buy more. Never true 10/15/19 25 Within the past 12 months, t he food you bought just didn't last and you didn't have money to get more. Never true 10/14/2024 AUDIT-C Answer Date Recorded Q1: How often do you have a drink containing alc ohol? 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 Gender Identity Not on file Sexual Orientation Not on file Last Filed Vital Signs Vital Sign Reading Time Taken Comments Blood Pressure 150/100 01/14/2025 8:50 AM CDT Pulse 85 01/14/2025 8:50 AM CDT Temperature 36.6 C (97.8 F) 01/14/2025 8:50 AM CDT Respiratory Rate 14 01/14/2025 8:50 AM CDT Oxygen Saturation 90% 01/14/2025 8:50 AM CDT Inhaled Oxygen Concentration - - Weight 59 kg (130 lb) 01/14/2025 8:50 AM CDT Height 160 cm (5' 3) 01/14/2025 8:50 AM CDT Body Mass Index 23.03 01/14/2025 8:50 AM CDT Plan of Treatment Health Maintenance Due Date Last Done Comments Breast Cancer Screening-Mammogram 1955 Colon Cancer Screening-Colonoscopy 1955 Fall Risk Assessment 1955 Hepatitis C Screening 1955 Hepatitis B Screening 09/01/1971 Pneumococcal vaccine 65+ (1 of 2 - PCV) 1972 DTaP/Tdap/Td Vaccine (1 - Tdap) 10/07/1997 8 Lung Cancer Screening 09/01/2003 Zoster Vaccine (1 of 2) 09/01/2003 Well Visit 65+ 2018 Depression Screening 01/02/2019 01/02/2018, 01/03/20 18 Covid-19 Vaccine (2024-2 6 season) 2025 05/11/2021, 08/25/2020, 08/25/2020, Additional history exists Influenza Vaccine (#1) 2025 , 05/11/2021, 02/28/2010, Additional history exists Osteoporosis Screening-Bone Density Scan 10/21/2025 10/22/2023, 01/22/2022 Goals Goal Patient Goal Type Associated Problems Recent Progress Patient-Stated? Author CCM Chronic Pain Care Plan Chronic Care Management No change(07/30 9:42 AM PRODUCT MANAGEMENT SPECIALIST) No Keri krause, Eliza Castrejon RN Note: Problem: Chronic Pain Goals: 1. Minimize further functional decline 2. Maximize quality of life 3. Control pain Strategies: - Activity/exercise program recommendation - Conservative stepwise pain medicine strategy with multi-disciplinary approach - Recommend healthy lifestyle strategies and compensatory methods as needed Medical Devices Implanted Type Area Starch And Prosize Mixer Device Identifier Shelf Expiration Date Model / Serial / Lot Screws And Cage N/A: Neck Screws And Rods Right: Femur [employer] [id number] Vertaplex Hv Autoplex Without Needle Delivery System Kit Bone - [id number] Implanted:Qty: 1 on 07/03/2019 by Alvarez Cui MD at [facility] [employer] [id number] / / Procedures Procedure Name Priority Date/Time Associated Diagnosis Comments DEXA AXIAL SKELETON BONE DENSITY 1 OR MORE SITES Schedule Routine, Read Routine (OP Routine) 10/22/2023 11:24 AM CDT Osteoporosis, unspecified osteoporosis type, unspecified pathological fracture presence from Last 3 Months or Most Recently Relevant to Health Maintenance Results * Dexa Axial Skeleton Bone Density 1 or 2 Site (10/22/2023 11:24 AM CDT) Anatomical Region Laterality Modality Body N/A Radiographic Kaitlin ging Narrative 10/22/2023 9:56 PM CDT Patient Name: Megan Truong Date of : 1955 Date of scan: 10/22/2023 Bone mineral density was performed on a Holoclick[employer] Discovery Densitometer. Based on machine cross-calibration and [...] by the International Society of Clinical Densitometry. [id number] Soraya Andres DO IMG DXA PROCEDURES Rashmi l Result from Last 3 Months or Most Recently Relevant to Health Maintenance Insurance MEDICARE [facility] MEDICARE [facility] MEDICARE Care Teams Cupola Tender Relationship Specialty Start Date End Date Miscellaneous, Not In File PCP - General 04/05/25
--- OUTSIDE RECORDS SUMMARY | 2025-04-06 18:49 | XMS_ITS | Clinical Summary ---
Author Organization [facility] Address [address] [facility] [place] [address] Care Team Providers Care Catering And Events Manager Name Role Phone Rosalia Milian MD Primary Care Provider [phone] Source Comments [facility],non-owned Affiliates and Associated Physician Practices is amultiple site organization consisting of ambulatory clinics and hospital sitesin [place], [place], [place] and [place]. This disclosure is being madepursuant to the Care Everywhere program and may not contain all information available regarding this patient. Last updated 18.[employer] Allergies No known active allergies Medications * This document contains information received from the source organization and may not represent a complete record from that organization. * Be aware that medications may not be up to date on this document. Alwaysverify current medications with the patient. DULoxetine (Cymbalta) 30 MG capsuleIndicati ons:Major Depressive Disorder Take 1 (one) capsule by mouth once daily Reasons: Major Depressive Disorder 30 capsule 4 Active mirtazapine (Remeron) 7.5 MG tablet Take 1 (one) tablet by mouth at bedtime 30 tablet 4 Active Social History Tobacco Use Types Packs/Day Years Used Date Smoking Tobacco: Every Day Cigarettes Smokeless Tobacco: Never Tobacco Cessation:Ready to Q uit: Not Asked; Counseling Given: Not Answered Comments Unknown Sex and Gender Information Value Date Recorded Sex Assigned at Not on file Legal Sex Female 10:58 AM CDT Gender Identity Not on file Sexual [...] 11:34 AM CDT Height 165.1 cm (5' 5) 01/17/2024 11:34 AM CDT Body Mass Index [...] 1972 ZOSTER VACCINE (1 of 2) 09/01/2003 DEPRESSION SCREENING 05/27/2024 COVID-19 VACCINE (2 - 2024-2 6 season) 2025 07/27/2020 INFLUENZA VACCINE (#1) 2025 Respiratory Syncytial Virus (RSV) Vaccine Pt: or [...] complete this topic MENINGOCOCCAL (Group B) VACCINE SHARED DECISION-MAKING Aged Out No longer eligible based on patient's age to complete this topic MENINGOCOCCAL GROUPS A/C/Y/W VACCINE Aged Out No longer eligible b ased on patient's age to complete this topic Insurance MEDICARE MEDICARE Care Teams Catering And Events Manager Relationship Specialty Start Date End Date Rosalia Milian MD [address] [place] [address] PCP - General Family Medicine 01/17/24
--- NOTE | 2025-04-06 18:51 | ECG_ITS ---
Test Date: 2025-04-06 18:58:20 Measurements Intervals [place] Rate: 94 P: 58 DE: 203 QRS: 26 QRSD: 81 T: 43 QT: 317 QTc: 397 Interpretive Statements SINUS RHYTHM POSSIBLE LEFT ATRIAL ENLARGEMENT [-0.1mV P-WAVE IN V1/V2] No previous ECG available for comparison Electronically Signed On 04-06-2025 21:13:29 ADMINISTRATIVE ACCOUNTANT by Dwight Carney M.D.
[2025-04-06 19:00] VITALS: BP 183/117; PULSE 102; RESP 12; TEMP 36.9; O2SAT 95
--- NOTE | 2025-04-06 19:10 | ED.CHESTPAIN ---
HPI - Chest Pain General Chief Complaint: Chest Pain Stated Complaint: chest pain Time Seen by Provider: 04/06/25 19:07 Source: patient and family (son and daughter) Mode of arrival: ambulatory Limitations: no limitations History of Present Illness HPI narrative: Patient presents with report of left-sided chest pain starting this afternoon while at rest. She reports that it is located along her left lateral chest and under her left breast in is otherwise nonradiating. Severity is 8 out 10. She reported being constant but worsened when she tries to take a breath. No shortness of breath however. No cough. No fevers or chills. She denies any history of this. She denies any underlying respiratory or cardiac issues. Does not follow with a software configuration analyst. She has some subjective lower extremity edema although she attributes this to her underlying neuropathy. Denies any nausea or vomiting. She does have a PCP - Jolanta Boland Cardiac risk factors HTN: Yes HLD: No DM: No Obese: No Smoker: Yes Personal history ID/TIA/CVA: No Fam Hx ID in first degree relative <65yo: Yes, mom <65 Related Data Home Medications ?Medication ?Instructions ?Recorded ?Confirmed ?Last Taken ?Type morphine 60 mg tablet,extended 60 mg PO Q8H 06/12/19 04/07/24 06/11/19 History release oxycodone 15 mg tablet 15 mg PO Q4H PRN Pain 06/12/19 04/07/24 06/11/19 History teriparatide 20 mcg/dose (560 20 mcg subcut DAILY 05/09/23 04/07/24 Unknown History mcg/2.24 mL) subcutaneous pen injector (Forteo) Allergies Allergy/AdvReac Type Severity Reaction Status Date / Time clindamycin Allergy Mild HIVES Verified 04/06/25 19:03 ibuprofen AdvReac Mild Nausea and Verified 04/06/25 19:03 Vomiting PMFSH Past Medical History Medical History Oxygen dependent Osteoporosis, unspecified Costochondritis Emphysema lung 12.5 CTA: No PE. Probable LLL pneumonia, Moderate emphysema with apical scarring Acute respiratory failure Effusion of hip joint, left Hip fracture, right Major depressive disorder, recurrent, unspecified Idiopathic peripheral autonomic neuropathy, unspecified Depression Femur fracture, right Arthritis GERD (gastroesophageal reflux disease) Pneumonia Bronchitis HTN (hypertension) Peripheral neuropathy Surgical History Surgical History Status post-operative repair of closed fracture of right hip S/P cubital tunnel release rt side History of hysterectomy Hx of cervical spine surgery fusion of C2-T2 Family History Family History (Updated 04/06/25 @ 19:37 by Amalia Robertson MD) Mother Diabetes mellitus Family history of cardiovascular disease Acute myocardial infarction <65yo Grandparent Family history of malignant neoplasm of breast Other Depression Social History Social History (Updated 04/06/25 @ 19:37 by Amalia Robertson MD) Smoking packs per day: 0.9 Smoking cigarettes per day: 18.0 Years smoked: 35 Smoking pack-years: 31.50 Alcohol intake: never Substance use: never Gender identity (if verbalized by the patient): Female Spiritual care concerns: No Agree to blood products: Yes Exam Narrative: GENERAL: Well-appearing, well-nourished, and in no acute distress. HEAD: Normocephalic, atraumatic. EYES: Non injected, non icteric ENT: Nares clear, no rhinorrhea or epistaxis. Gross auditory acuity intact. NECK: Supple. No meningismus. CHEST: Speaking in full sentences. No respiratory distress. Lungs clear bilaterally without appreciable crackles consolidation wheezes HEART: Regular rate and rhythm. No rub appreciated. ABDOMEN: Soft, nondistended. No rigidity or guarding. Not peritoneal EXTREMITIES: Normal range of motion. No lower extremity edema on exam SKIN: Warm, dry, no rash including no rash located along her chest including left lateral chest and inframammary NEURO: No focal deficits. Alert and oriented. Answering questions. Following commands. Normal speech without aphasia or dysarthria. PSYCH: Normal mood and affect. Course Vital Signs Vital signs: Vital Signs Temperature 98.4 F 04/06/25 19:00 Pulse Rate 102 H 04/06/25 19:00 Respiratory Rate 12 04/06/25 19:00 Blood Pressure 183/117 H 04/06/25 19:00 Pulse Oximetry 95 04/06/25 19:00 Oxygen Delivery Room Air 04/06/25 19:00 Temperature 98.4 F 04/06/25 19:00 Pulse Rate 102 H 04/06/25 19:00 Respiratory Rate 12 04/06/25 19:00 Blood Pressure 183/117 H 04/06/25 19:00 Pulse Oximetry 95 04/06/25 19:00 Oxygen Delivery Room Air 04/06/25 19:00 MDM - Chest Pain MDM Narrative Medical decision making narrative: Patient presents with report of left-sided chest pain started this afternoon at rest. It is across her left lateral chest wall In the emergency department she is afebrile vital signs notable for mild tachycardia as well as hypertension. Leukocytosis. HEART SCORE History 2 highly suspicious 1 moderately suspicious 0 slightly suspicious History score [address] depression/elevation not due to LBBB, LVH, or digoxin [address] depression but LBBB, LVH, nonspecific repolarization changes 0 normal ECG score 0 Age 2 >/= 65 1 45-64 0 <45 Age score 2 Risk factors (HTN, hypercholesterolemia, DM, obesity with BMI >30, current smoker or cessation </=3mo), positive fam hx with parent or sibling with CVD before age 65, atherosclerotic disease (prior ID, PCI/CABG, CVA/TIA, or peripheral arterial disease) 2 >/= 3 risk factors or history of atherosclerotic dz 1 - 1-2 risk factors 0 no known risk factors Risk factor score 2 Initial Troponin 2 >3 times normal limit 1 1-3 times normal limit 0 less than or equal to normal limit Troponin score 0 Total HEART Score 4 D dimer is within normal limits. Will not pursue CT PE study. Patient is given 1 sublingual nitroglycerin her systolic blood goes from 182 repeat pressure of 142/95. She reports feeling the same although she looks more comfortable, relaxed. Patient requesting to leave AMA. We discussed the role of the 2nd troponin as well as her HEART score. She is amenable to staying for the 2nd troponin. Repeat troponin normal. We discussed that there was concern that patient is experiencing unstable angina and she reports that she believes that she has pleurisy as she has had nasal congestion lately and/or pain technically started she was getting a heavy bowl out the cupboard. We discussed the HEART score and that she is taking increased risk because of this and unable to definitively say it is not cardiac and that because she does not a software configuration analyst may be difficult to get in to see 1 in a timely manner. However, her concerns are reasonable and the location and way she describes her pain is not specifically cardiac in nature. She and her daughter feel comfortable her being discharged and I strongly encouraged her to return at any time point new worsening symptoms. Of note, patient's discharge instructions have been printed nurse had been another critical patient and this patient left without receiving discharge instructions and possibly with IV in place as none was seen in the room or removed by another nurse. Charge nurse upon learning this did call patient and request she return to the ED for IV removal and to receive DC instructions. Patient states she waited an hour and said her IV was out. trade sales assistant informed her that PD would have to be contacted to perform a welfare check to verify patient's statements. trade sales assistant called PD. Patient had said her DC instructions could be mailed to her. Differential Diagnosis Differential diagnosis: Likely stable angina, unstable angina pectoris, atypical chest pain, st elevation myocardial infarction, costochondritis, chest pain, biliary colic and other (zoster; sprain/strain) Lab Data Attestation: I reviewed the patient's lab results. 04/06/25 19:05 04/06/25 19:05 Labs: Lab Results 04/06/25 04/06/25 Range/Units 19:05 21:59 WBC 13.0 H (4.5-10.0) K/mm3 RBC 4.93 (4.2-5.4) M/mm3 Hgb 14.3 (12.0-15.0) g/dL Hct 43.3 (37.0-47.0) % MCV 87.8 (80-100) fl MCH 29.0 (26-34) pg MCHC 33.0 (32-36) g/dl RDW 13.2 (11.5-14.5) % Plt Count 232 (150-375) k/mm3 MPV 9.8 (7.4-10.4) fl Immature Gran % (Auto) 0.5 (0-0.5) % Neut % (Auto) 82.4 H (45.5-73.1) % Lymph % (Auto) 10.7 L (18.3-44.2) % Weld % (Auto) 5.4 (2.6-8.5) % Eos % (Auto) 0.5 (0-4.4) % Baso % (Auto) 0.5 (0.2-1.2) % Lymph # (Auto) 1.39 (0.9-3.2) K/mm3 Weld # (Auto) 0.7 H (0.1-0.6) K/mm3 Eos # (Auto) 0.1 (0-0.3) K/mm3 Baso # (Auto) 0.1 (0.0-0.1) K/mm3 Abs Immat Gran (auto) 0.06 H (0.00-0.031) K/mm3 Absolute Neuts (auto) 10.7 H (1.3-6.7) K/mm3 Absolute Nucleated RBC 0.000 (0.0-0.012) K/mm3 Nucleated RBC % 0.0 (0.0-0.2) % PT 13.3 (11.1-14.7) Seconds INR 1.0 APTT 28.9 (22.3-36.8) Seconds D-Dimer 0.43 (<0.48) ug/mL Sodium 137 (137-145) mmol/L Potassium 3.7 (3.4-5.0) mmol/L Chloride 100 (98-107) mmol/L Carbon Dioxide 28 (22-30) mmol/L Anion Gap 9 (4-12) mmol/L BUN 14 (7-17) mg/dL Creatinine 0.57 L (0.7-1.0) mg/dL Estim Creat Clear Calc 63 ml/min Estimated GFR > 60 (59 - ) Glucose 119 H (65-110) mg/dL Calcium 9.7 (8.4-10.2) mg/dL Total Bilirubin 0.7 (0.2-1.3) mg/dL AST 20 (14-36) U/L ALT 16 (6-35) U/L Alkaline Phosphatase 112 (38-126) U/L Troponin I < 0.012 < 0.012 (0.000-0.034) ng/mL Total Protein 7.7 (6.3-8.2) g/dL Albumin 4.3 (3.5-5.1) g/dL Lipase 20 L (23-300) U/L Imaging Data Attestation: I personally reviewed and interpreted this imaging study as follows: My impression: Chest x-ray seemed to show her matter localized to the anterior aspect of vertebral processes, questionable cement or other spine surgery material Radiologist's impression: Impressions Chest X-Ray 04/06/25 19:20 IMPRESSION: No acute lung findings.] [ ] ECG Data EKG #1: Attestation: I personally reviewed and interpreted this ECG as follows: ECG completion date: 04/06/25 ECG completion time: 18:58 Prior ECG tracings: available for review Interpretation: Normal sinus rhythm at a rate of 94 beats per minute. NE interval slightly prolonged at 203 milliseconds consistent with a first-degree AV block. QRS 81. QT/QTC 370/397. Good R-wave progression across the precordial leads. No T-wave inversions. EKG #2: Attestation: I personally reviewed and interpreted this ECG as follows: ECG completion date: 04/06/25 ECG completion time: 22:02 Prior ECG tracings: available for review Interpretation: Normal sinus rhythm at a rate of 83 beats per minute. NE interval 192. QRS 86. QT/QTC 358/421. Good R-wave progression across the precordial leads. T-wave inversion in V3 possibly due to lead placement. T-wave flattening in 3. Discharge Plan Discharge Clinical Impression: Left-sided chest pain, Leukocytosis, Smokes Patient Disposition: Home Condition: Stable Instructions: Antibiotic Form, Chest Pain (ED), Pleurisy (ED), How to Stop Smoking (ED), Leukocytosis (ED), Chest Wall Pain (ED) Additional Instructions: As we discussed, many causes of your chest pain were considered and although you had two reassuring EKGs and troponin/cardiac enzymes, I would strongly recommend you follow up with both your primary care provider as Cardiology. The name of a software configuration analyst is listed below. Acetaminophen/Tylenol (maximum 3000 mg per day) is safe to take for pain relief. Return to the emergency department any new or worsening symptoms. Patient Language: Japanese Prescriptions: New acetaminophen 650 mg tablet extended release 650 mg PO Q8H PRN (Reason: pain) Qty: 30 0RF No Action teriparatide [Forteo] 20 mcg/dose (600mcg/2.4mL) pen injector 20 mcg subcut DAILY albuterol sulfate 90 mcg/actuation HFA aerosol inhaler 1 - 2 inh inhalation Q4-6H PRN (Reason: shortness of breath or wheezing) Qty: 8.5 2RF nicotine (polacrilex) 2 mg lozenge 2 mg buccal Q2-4H PRN (Reason: nicotine cravings) Qty: 108 1RF oxycodone 15 mg Tablet 15 mg PO Q4H PRN (Reason: Pain) Rx Instructions: Takes up to ten tablets a day. 2-3 at a time. morphine 60 mg Tablet Extended Release 60 mg PO Q8H cholecalciferol (vitamin D3) 50 mcg (2,000 unit) capsule 50 mcg PO DAILY Qty: 90 3RF calcium carbonate [Calcium 500] 500 mg calcium (1,250 mg) tablet 500 mg PO DAILY Qty: 90 3RF fluticasone propion-salmeterol [AirDuo RespiClick] 113-14 mcg/actuation aerosol powdr breath activated 1 inh inhalation BID Qty: 1 5RF Rx Instructions: rinse and spit lisinopril 20 mg tablet 20 mg PO DAILY Qty: 30 3RF Follow-up/Referrals: Bell Arredondo DO [Physician, Cardiology] Jason,FRANCISCO J Stover [Primary Care Provider, Unknown] Stand Alone Forms: Work/School Release IP Time of Disposition: 22:52
[2025-04-06 19:13] LABS: Hematocrit 43.3 % (37.0-47.0); Hemoglobin 14.3 g/dL (12.0-15.0); Immature Granulocyte Percent A 0.5 % (0-0.5); Lymphocytes Absolute Auto 1.39 K/mm3 (0.9-3.2); Mean Corpuscular HGB Conc 33.0 g/dl (32-36); Mean Corpuscular Hemoglobin 29.0 pg (26-34); Mean Corpuscular Volume 87.8 fl (80-100); Nucleated Red Blood Cells Absolute Auto 0.000 K/mm3 (0.0-0.012); Nucleated Red Blood Cells Perc 0.0 % (0.0-0.2); Platelet Count Result 232 k/mm3 (150-375); Red Blood Count 4.93 M/mm3 (4.2-5.4); White Blood Count 13.0 K/mm3 (4.5-10.0)
[2025-04-06 19:27] LABS: Alanine Aminotransferase 16 U/L (6-35); Albumin Level 4.3 g/dL (3.5-5.1); Alkaline Phosphatase 112 U/L (38-126); Anion Gap 9 mmol/L (4-12); Aspartate Amino Transferase 20 U/L (14-36); Bilirubin,Total 0.7 mg/dL (0.2-1.3); Blood Urea Nitrogen 14 mg/dL (7-17); Calcium 9.7 mg/dL (8.4-10.2); Carbon Dioxide 28 mmol/L (22-30); Chloride 100 mmol/L (98-107); Estimated CRCL calculation 63 ml/min; Estimated Glomerular Filt Rate > 60; Glucose 119 mg/dL (65-110); INR 1.0; Lipase 20 U/L (23-300); Potassium 3.7 mmol/L (3.4-5.0); Prothrombin Time 13.3 Seconds (11.1-14.7); Sodium 137 mmol/L (137-145); Total Protein 7.7 g/dL (6.3-8.2)
[2025-04-06 19:28] LABS: Partial Thromboplastin Time 28.9 Seconds (22.3-36.8)
[2025-04-06 19:35] LABS: Troponin I < 0.012 ng/mL (0.000-0.034)
[2025-04-06] MEDS: ASPIRIN 81 MG CHEWABLE TABLET 324 MG PO (20:10)
[2025-04-06] MEDS: NITROGLYCERIN SL 0.4 MG TABLET SUBLINGUAL (20:11)
--- NOTE | 2025-04-06 22:05 | ECG_ITS ---
Test Date: 2025-04-06 22:02:52 Measurements Intervals [place] Rate: 83 P: 24 HI: 192 QRS: 15 QRSD: 86 T: 40 QT: 358 QTc: 421 Interpretive Statements SINUS RHYTHM Compared to ECG 04/06/2025 18:58:20 No significant changes Electronically Signed On 04-07-2025 06:57:43 DRIVER/REFUSE COLLECTOR by Amee Palmer M.D.
--- NOTE | 2025-04-06 22:10 | PC.NURSE ---
When rounding the Pt family and Pt expressed desire to leave against medical advice. this RN then informed charge and Physician and Physician communicated wtih the Pt about benefits and risks. Pt has so far agreed to stay for continuing of assessment
[2025-04-06 22:27] LABS: Troponin I < 0.012 ng/mL (0.000-0.034)
--- NOTE | 2025-04-06 23:42 | PC.NURSE ---
ON 04/06/2025 FRANCISCO YEAGER WENT TO PT ROOM TO D/C PT AT APPROX 2315. PT WAS NOTED TO HAVE ELOPED SOMETIME PRIOR TO THIS. FRANCISCO YEAGER MADE THIS CHARGE NURSE AWARE. THIS ED CHARGE NURSE CALLED PT AT 2324 ON HER CELL PHONE AT [phone]. PT ANSWERED AND STATED SHE WAS TIRED OF WAITING AND LEFT. THIS RN INQUIRED ABOUT HER IV. PT STATED THAT SHE TOOK IT OUT AND LEFT IT IN THE ROOM. THIS RN ASKED PT TO COME BACK FOR HER D/C PAPERS AND INSTRUCTIONS, AND ALSO SO STAFF CAN VERIFY THAT HER IV IS OUT AND THE SITE IS [facility]. PT REFUSED, STATED SHE WAS NOT GOING TO COME BACK AND STATED THAT SHE WOULD LIKE HER D/C PAPERS MAILED TO HER. THIS RN ATTEMPTED TO EXPLAIN THAT THAT IS NOT HOW THIS WORKS. THIS RN INFORMED PT THAT AND [employer] OFFICER WILL HAVE TO COME OUT TO HER HOUSE AND VERIFY THAT THE IV IS INDEED OUT OF HER ARM. PT SAID FINE. [employer] CONTACTED AT 2327 AT [phone]. INFO GIVEN FOR WELFARE CHECK. AT 2341 OFFICER MILKA FROM [employer] CALLED BACK AND VERIFIED THAT THE IV WAS OUT OF PT'S ARM AND THERE WAS NO BLOOD OR SWELLING NOTED TO WHERE IV HAD BEEN.
== END 2025-04-06 23:15 | disposition home or self-care (01) ==
PROVIDERS: Emergency Medicine; Emergency Provider Student in an Organized Health Care Education/Training Program; PCP Physician Assistant
DX: R07.9 Chest pain, unspecified (principal); D72.829 Elevated white blood cell count, unspecified; F17.210 Nicotine dependence, cigarettes, uncomplicated; I10 Essential (primary) hypertension; J43.9 Emphysema, unspecified; G60.9 Hereditary and idiopathic neuropathy, unspecified; M81.0 Age-related osteoporosis without current pathological fracture; M19.90 Unspecified osteoarthritis, unspecified site; K21.9 Gastro-esophageal reflux disease without esophagitis; Z98.1 Arthrodesis status; Z87.01 Personal history of pneumonia (recurrent); Z90.710 Acquired absence of both cervix and uterus; Z79.899 Other long term (current) drug therapy; R94.31 Abnormal electrocardiogram [ECG] [EKG]
CPT/HCPCS: 36415; 71046; 80053; 83690; 84484; 85025; 85380; 85610; 85730; 93005; 99284; A9270